=== PATIENT | female | born 1945 | race Caucasian/White ===

== ENCOUNTER → 2023-07-09 10:01 | Outpatient (REF) | payer MEDICARE, SELFPAY ==
[2023-07-09 11:10] LABS: ALT (SGPT) 52 U/L (0-35); AST (SGOT) 43 U/L (14-36); Albumin 4.4 g/dl (3.5-5.0); Alkaline Phosphatase 78 U/L (38-126); Blood Urea Nitrogen 22 mg/dl (7-17); Calcium 9.9 mg/dl (8.4-10.2); Carbon Dioxide 28 mmol/L (22-30); Chloride 104 mmol/L (98-107); Glucose 81 mg/dl (70-99); Potassium 4.6 mmol/L (3.5-5.1); Sodium 140 mmol/L (135-145); Total Bilirubin 0.7 mg/dl (0.2-1.3); Total Protein 7.3 g/dl (6.3-8.2); eGFR 57.31
== END ==
LOC: REG 10:01
PROVIDERS: ATTENDING PHYSICIAN Nurse Practitioner Adult Health
DX: R79.89 Other specified abnormal findings of blood chemistry (principal)
CPT/HCPCS: 36415; 80053

== ENCOUNTER → 2023-08-06 10:22 | Outpatient (REF) | payer MEDICARE, SELFPAY ==
[2023-08-06 11:55] LABS: ALT (SGPT) 117 U/L (0-35); AST (SGOT) 75 U/L (14-36); Albumin 4.2 g/dl (3.5-5.0); Alkaline Phosphatase 98 U/L (38-126); Total Bilirubin 0.6 mg/dl (0.2-1.3); Total Protein 7.1 g/dl (6.3-8.2)
== END ==
LOC: REG 10:22
PROVIDERS: ATTENDING PHYSICIAN Nurse Practitioner Adult Health
DX: R79.89 Other specified abnormal findings of blood chemistry (principal)
CPT/HCPCS: 36415; 80076

== ENCOUNTER → 2023-08-15 07:19 | Outpatient (REF) | payer MEDICARE, SELFPAY | LOC: HWRAD 07:19 | PROVIDERS: ATTENDING PHYSICIAN Surgery Vascular Surgery; FAMILY PHYSICIAN Nurse Practitioner Adult Health | DX: I72.8 Aneurysm of other specified arteries (principal) | CPT/HCPCS: 74174; Q9967 ==

== ENCOUNTER → 2023-08-28 07:11 | Outpatient (REF) | payer MEDICARE, SELFPAY | LOC: HWRAD 07:11 | PROVIDERS: ATTENDING PHYSICIAN Nurse Practitioner Adult Health | DX: R74.8 Abnormal levels of other serum enzymes (principal); R10.13 Epigastric pain; R14.2 Eructation | CPT/HCPCS: 76700 ==

== ENCOUNTER → 2023-09-14 07:10 | Outpatient (REF) | payer MEDICARE, SELFPAY ==
[2023-09-14 09:15] LABS: TSH Reflex To Free T4 0.87 uIU/ml (0.47-4.68)
[2023-09-14 09:19] LABS: Ferritin 83.4 ng/ml (11.1-264.0)
[2023-09-14 09:21] LABS: Hepatitis B Surface Antigen Negative (Negative)
[2023-09-14 09:38] LABS: Hepatitis B Core Ab, Total Negative (Negative); Hepatitis B Surface Antibody Negative; Hepatitis C Antibody Negative (Negative)
[2023-09-14 09:51] LABS: ALT (SGPT) 71 U/L (0-35); AST (SGOT) 49 U/L (14-36); Albumin 4.2 g/dl (3.5-5.0); Alkaline Phosphatase 92 U/L (38-126); Iron 96 ug/dl (37-170); Total Bilirubin 0.4 mg/dl (0.2-1.3)
[2023-09-14 10:00] LABS: Percent Saturation 31 % (20-50); Total Iron Binding Capacity 307 ug/dl (265-497)
[2023-09-14 10:14] LABS: Direct Bilirubin 0.3 mg/dl (0.0-0.4)
[2023-09-14 11:48] LABS: Hepatitis A Antibody, Total Negative (Negative)
[2023-09-15 14:13] LABS: Hepatitis Be Antibody Negative (Negative); Hepatitis Be Antigen Negative (Negative)
[2023-09-15 16:58] LABS: Alpha-1-Antitrypsin 157 mg/dL (90-200); Ceruloplasmin 21 mg/dL (16-45)
[2023-09-15 22:13] LABS: F-Actin Antibody IgG 9 Units (0-19); Mitochondrial M2 Ab, IgG 4.6 Units (0.0-24.9)
[2023-09-15 22:31] LABS: ANA, IgG Reflex to HEp-2 None Detected (None Detected)
[2023-09-15 23:07] LABS: Endomysial IgA Antibody Titer <1:10 (<1:10)
[2023-09-17 01:37] LABS: IgA 211 mg/dl (70-400)
== END ==
LOC: REG 07:10
PROVIDERS: ATTENDING PHYSICIAN Nurse Practitioner; FAMILY PHYSICIAN Nurse Practitioner Adult Health
DX: R74.8 Abnormal levels of other serum enzymes (principal); I48.0 Paroxysmal atrial fibrillation
CPT/HCPCS: 36415; 80076; 82103; 82390; 82728; 82784; 83516; 83540; 83550; 84443; 86015; 86038; 86231; 86381; 86704; 86706; 86707; 86708; 86803; 87340; 87350

== ENCOUNTER 2023-11-15 06:32 | Day surgery (SDC) | payer MEDICARE, SELFPAY ==
[2023-11-15 08:05] VITALS: BP 148/76
[2023-11-15 08:20] VITALS: BMI 25.9
[2023-11-15 08:35] VITALS: BMI 25.9
[2023-11-15 09:58] VITALS: BP 106/64
[2023-11-15 10:00] VITALS: BP 112/59
[2023-11-15 10:15] VITALS: BP 119/65
== END 2023-11-15 10:33 | disposition home or self-care (01) ==
LOC: GI 06:32
PROVIDERS: ATTENDING PHYSICIAN Internal Medicine Gastroenterology
DX: Z12.11 Encounter for screening for malignant neoplasm of colon (principal); K57.30 Diverticulosis of large intestine without perforation or abscess without bleeding; K56.699 Other intestinal obstruction unspecified as to partial versus complete obstruction; K64.8 Other hemorrhoids; K29.70 Gastritis, unspecified, without bleeding; K31.89 Other diseases of stomach and duodenum; R10.13 Epigastric pain; Z86.010 Personal history of colon polyps
CPT/HCPCS: 45378; 43239; 88305; 88342

== ENCOUNTER → 2024-02-04 08:23 | Outpatient (REF) | payer MEDICARE, SELFPAY | LOC: HWRAD 08:23 | PROVIDERS: ATTENDING PHYSICIAN Internal Medicine Gastroenterology; FAMILY PHYSICIAN Nurse Practitioner Adult Health; REFERRING PHYSICIAN Obstetrics & Gynecology Gynecology | DX: Q43.8 Other specified congenital malformations of intestine (principal) | CPT/HCPCS: 74261 ==

== ENCOUNTER → 2024-03-11 08:46 | Outpatient (REF) | payer MEDICARE, SELFPAY ==
[2024-03-11 09:51] LABS: % Basophils 0.9 % (0-2); % Immature Granulocytes 0.7 % (0-0.5); % Lymphocytes 11.8 % (20.5-51.1); % Monocytes 10.2 % (1.7-9.3); % Neutrophils 73.4 % (42.2-75.2); Absolute Basophils 0.1 10^3/uL (0-0.2); Absolute Eosinophils 0.3 10^3/uL (0-0.7); Absolute Immature Granulocytes 0.1 10^3/uL (0-0.05); Absolute Lymphocytes 1.2 10^3/uL (1.2-3.4); Absolute Monocytes 1.1 10^3/uL (0.1-0.6); Absolute Neutrophils 7.6 10^3/uL (1.4-6.5); Hematocrit 45.4 % (37.0-47.0); Hemoglobin 15.2 g/dL (12.0-16.0); Mean Corp Hgb Conc. 33.5 g/dL (33.0-37.0); Mean Corpuscular Hgb 29.5 pg (27.0-31.0); Mean Corpuscular Volume 88.2 fL (81.0-99.0); Mean Platelet Volume 9.6 fL (7.4-10.4); Nucleated Red Blood Cells % 0 %; Platelet Count 411 10^3/uL (130-400); Red Blood Cell Count 5.15 10^6/uL (4.20-5.40); Red Cell Dist. Width 13.9 % (11.5-14.5); White Blood Cell Count 10.3 10^3/uL (4.8-10.8)
[2024-03-11 10:33] LABS: ALT (SGPT) 71 U/L (0-35); AST (SGOT) 56 U/L (14-36); Albumin 4.7 g/dl (3.5-5.0); Alkaline Phosphatase 91 U/L (38-126); Blood Urea Nitrogen 20 mg/dl (7-17); Calcium 10.2 mg/dl (8.4-10.2); Carbon Dioxide 26 mmol/L (22-30); Chloride 102 mmol/L (98-107); Glucose 96 mg/dl (70-99); HDL Cholesterol 58 mg/dl; Iron 109 ug/dl (37-170); LDL Cholesterol, Calculated 70 mg/dl; Potassium 4.9 mmol/L (3.5-5.1); Sodium 143 mmol/L (135-145); Total Bilirubin 0.6 mg/dl (0.2-1.3); Total Cholesterol 157 mg/dl (50-199); Total Protein 7.7 g/dl (6.3-8.2); Triglyceride 148 mg/dl (10-149); Very Low Density Lipoprotein 29 mg/dl (0-30); eGFR 57.31
[2024-03-11 10:44] LABS: Percent Saturation 31 % (20-50); Total Iron Binding Capacity 344 ug/dl (265-497)
[2024-03-11 11:04] LABS: Ferritin 59.1 ng/ml (11.1-264.0)
== END ==
LOC: REG 08:46
PROVIDERS: ATTENDING PHYSICIAN Nurse Practitioner Adult Health; REFERRING PHYSICIAN Internal Medicine Cardiovascular Disease
DX: Z00.00 Encounter for general adult medical examination without abnormal findings (principal); Z23 Encounter for immunization; I10 Essential (primary) hypertension; E78.5 Hyperlipidemia, unspecified; D50.9 Iron deficiency anemia, unspecified
CPT/HCPCS: 36415; 80053; 80061; 82728; 83540; 83550; 85025

== ENCOUNTER → 2024-03-31 10:11 | Outpatient (REF) | payer MEDICARE, SELFPAY | LOC: HWWDC 10:11 | PROVIDERS: ATTENDING PHYSICIAN Obstetrics & Gynecology Gynecology; FAMILY PHYSICIAN Nurse Practitioner Adult Health | DX: Z12.31 Encounter for screening mammogram for malignant neoplasm of breast (principal); M81.0 Age-related osteoporosis without current pathological fracture | CPT/HCPCS: 77063; 77067; 77080 ==

== ENCOUNTER → 2024-05-22 07:38 | Outpatient (REF) | payer MEDICARE, SELFPAY ==
[2024-05-22 09:11] LABS: % Basophils 1.2 % (0-2); % Eosinophils 3.1 % (0-6); % Immature Granulocytes 0.6 % (0-0.5); % Lymphocytes 13.6 % (20.5-51.1); % Monocytes 11.4 % (1.7-9.3); % Neutrophils 70.1 % (42.2-75.2); Absolute Basophils 0.1 10^3/uL (0-0.2); Absolute Eosinophils 0.3 10^3/uL (0-0.7); Absolute Immature Granulocytes 0.1 10^3/uL (0-0.05); Absolute Lymphocytes 1.4 10^3/uL (1.2-3.4); Absolute Monocytes 1.2 10^3/uL (0.1-0.6); Absolute Neutrophils 7.1 10^3/uL (1.4-6.5); Hematocrit 46.2 % (37.0-47.0); Hemoglobin 15.2 g/dL (12.0-16.0); Mean Corp Hgb Conc. 32.9 g/dL (33.0-37.0); Mean Corpuscular Hgb 29.4 pg (27.0-31.0); Mean Corpuscular Volume 89.4 fL (81.0-99.0); Mean Platelet Volume 9.7 fL (7.4-10.4); Nucleated Red Blood Cells % 0 %; Platelet Count 418 10^3/uL (130-400); Red Blood Cell Count 5.17 10^6/uL (4.20-5.40); Red Cell Dist. Width 13.7 % (11.5-14.5); White Blood Cell Count 10.1 10^3/uL (4.8-10.8)
== END ==
LOC: REG 07:38
PROVIDERS: ATTENDING PHYSICIAN Nurse Practitioner Adult Health
DX: R79.89 Other specified abnormal findings of blood chemistry (principal)
CPT/HCPCS: 36415; 85025

== ENCOUNTER → 2024-05-29 08:32 | Outpatient (REF) | payer MEDICARE, SELFPAY | LOC: REG 08:32 | PROVIDERS: ATTENDING PHYSICIAN Nurse Practitioner Adult Health; FAMILY PHYSICIAN Internal Medicine Cardiovascular Disease | DX: M54.2 Cervicalgia (principal); M79.601 Pain in right arm | CPT/HCPCS: 72050; 73030 ==

== ENCOUNTER → 2024-07-02 11:15 | Outpatient (REF) | payer MEDICARE, SELFPAY ==
[2024-07-02 12:09] LABS: % Basophils 1.1 % (0-2); % Eosinophils 2.1 % (0-6); % Immature Granulocytes 0.6 % (0-0.5); % Lymphocytes 12.2 % (20.5-51.1); % Monocytes 10.3 % (1.7-9.3); % Neutrophils 73.7 % (42.2-75.2); Absolute Basophils 0.1 10^3/uL (0-0.2); Absolute Eosinophils 0.2 10^3/uL (0-0.7); Absolute Immature Granulocytes 0.1 10^3/uL (0-0.05); Absolute Lymphocytes 1.4 10^3/uL (1.2-3.4); Absolute Monocytes 1.2 10^3/uL (0.1-0.6); Absolute Neutrophils 8.3 10^3/uL (1.4-6.5); Hematocrit 47.4 % (37.0-47.0); Hemoglobin 15.7 g/dL (12.0-16.0); Mean Corp Hgb Conc. 33.1 g/dL (33.0-37.0); Mean Corpuscular Hgb 29.7 pg (27.0-31.0); Mean Corpuscular Volume 89.6 fL (81.0-99.0); Mean Platelet Volume 9.6 fL (7.4-10.4); Nucleated Red Blood Cells % 0 %; Platelet Count 405 10^3/uL (130-400); Red Blood Cell Count 5.29 10^6/uL (4.20-5.40); White Blood Cell Count 11.3 10^3/uL (4.8-10.8)
== END ==
LOC: REG 11:15
PROVIDERS: ATTENDING PHYSICIAN Internal Medicine Hematology & Oncology; FAMILY PHYSICIAN Nurse Practitioner Adult Health; OTHER PHYSICIAN Internal Medicine Cardiovascular Disease
DX: D47.1 Chronic myeloproliferative disease (principal)
CPT/HCPCS: 36415; 85025

== ENCOUNTER → 2024-07-07 09:48 | Outpatient (REF) | payer MEDICARE, SELFPAY | LOC: RCS 09:48 | PROVIDERS: ATTENDING PHYSICIAN Internal Medicine Cardiovascular Disease; FAMILY PHYSICIAN Nurse Practitioner Adult Health | DX: I48.0 Paroxysmal atrial fibrillation (principal); I49.01 Ventricular fibrillation | CPT/HCPCS: 93306 ==

== ENCOUNTER 2024-07-14 07:57 | Outpatient (RCR) | payer MEDICARE, SELFPAY | END 2024-07-14 23:59 | disposition home or self-care (01) | LOC: RPT 07:57 | PROVIDERS: ATTENDING PHYSICIAN Internal Medicine Gastroenterology; FAMILY PHYSICIAN Nurse Practitioner Adult Health | DX: M62.89 Other specified disorders of muscle (principal); Z73.6 Limitation of activities due to disability; R26.81 Unsteadiness on feet; R26.89 Other abnormalities of gait and mobility; M62.81 Muscle weakness (generalized) | CPT/HCPCS: 97161; 97530 ==

== ENCOUNTER → 2024-07-18 11:06 | Outpatient (REF) | payer MEDICARE, SELFPAY ==
[2024-07-18 11:59] LABS: % Basophils 1.1 % (0-2); % Immature Granulocytes 0.9 % (0-0.5); % Lymphocytes 12.2 % (20.5-51.1); % Monocytes 9.8 % (1.7-9.3); Absolute Basophils 0.1 10^3/uL (0-0.2); Absolute Eosinophils 0.2 10^3/uL (0-0.7); Absolute Immature Granulocytes 0.1 10^3/uL (0-0.05); Absolute Lymphocytes 1.3 10^3/uL (1.2-3.4); Absolute Neutrophils 7.6 10^3/uL (1.4-6.5); Hematocrit 46.6 % (37.0-47.0); Hemoglobin 15.1 g/dL (12.0-16.0); Mean Corp Hgb Conc. 32.4 g/dL (33.0-37.0); Mean Corpuscular Hgb 29.4 pg (27.0-31.0); Mean Corpuscular Volume 90.7 fL (81.0-99.0); Mean Platelet Volume 9.4 fL (7.4-10.4); Nucleated Red Blood Cells % 0 %; Platelet Count 369 10^3/uL (130-400); Red Blood Cell Count 5.14 10^6/uL (4.20-5.40); White Blood Cell Count 10.3 10^3/uL (4.8-10.8)
== END ==
LOC: REG 11:06
PROVIDERS: ATTENDING PHYSICIAN Internal Medicine Hematology & Oncology; FAMILY PHYSICIAN Nurse Practitioner Adult Health
DX: D47.1 Chronic myeloproliferative disease (principal)
CPT/HCPCS: 36415; 85025

== ENCOUNTER → 2024-07-31 13:28 | Outpatient (REF) | payer MEDICARE, SELFPAY | LOC: MRI 13:28 | PROVIDERS: ATTENDING PHYSICIAN Nurse Practitioner Adult Health | DX: M21.372 Foot drop, left foot (principal); R26.89 Other abnormalities of gait and mobility; R29.6 Repeated falls; R42 Dizziness and giddiness; R26.9 Unspecified abnormalities of gait and mobility; R53.83 Other fatigue | CPT/HCPCS: 70544; 70553; A9575 ==

== ENCOUNTER → 2024-08-01 13:06 | Outpatient (REF) | payer MEDICARE, SELFPAY ==
[2024-08-01 14:18] LABS: % Basophils 0.9 % (0-2); % Eosinophils 2.3 % (0-6); % Immature Granulocytes 0.6 % (0-0.5); % Lymphocytes 12.2 % (20.5-51.1); % Monocytes 9.6 % (1.7-9.3); % Neutrophils 74.4 % (42.2-75.2); Absolute Basophils 0.1 10^3/uL (0-0.2); Absolute Eosinophils 0.3 10^3/uL (0-0.7); Absolute Immature Granulocytes 0.1 10^3/uL (0-0.05); Absolute Lymphocytes 1.4 10^3/uL (1.2-3.4); Absolute Monocytes 1.1 10^3/uL (0.1-0.6); Absolute Neutrophils 8.7 10^3/uL (1.4-6.5); Hematocrit 45.3 % (37.0-47.0); Hemoglobin 15.2 g/dL (12.0-16.0); Mean Corp Hgb Conc. 33.6 g/dL (33.0-37.0); Mean Corpuscular Hgb 29.9 pg (27.0-31.0); Mean Corpuscular Volume 89.2 fL (81.0-99.0); Mean Platelet Volume 9.6 fL (7.4-10.4); Nucleated Red Blood Cells % 0 %; Platelet Count 436 10^3/uL (130-400); Red Blood Cell Count 5.08 10^6/uL (4.20-5.40); White Blood Cell Count 11.8 10^3/uL (4.8-10.8)
== END ==
LOC: REG 13:06
PROVIDERS: ATTENDING PHYSICIAN Internal Medicine Hematology & Oncology; FAMILY PHYSICIAN Nurse Practitioner Adult Health
DX: D47.1 Chronic myeloproliferative disease (principal)
CPT/HCPCS: 36415; 85025

== ENCOUNTER → 2024-08-15 10:25 | Outpatient (REF) | payer MEDICARE, SELFPAY ==
[2024-08-15 12:00] LABS: % Basophils 1.1 % (0-2); % Eosinophils 3.4 % (0-6); % Immature Granulocytes 0.5 % (0-0.5); % Lymphocytes 14.2 % (20.5-51.1); % Monocytes 10.3 % (1.7-9.3); % Neutrophils 70.5 % (42.2-75.2); Absolute Basophils 0.1 10^3/uL (0-0.2); Absolute Eosinophils 0.4 10^3/uL (0-0.7); Absolute Immature Granulocytes 0.1 10^3/uL (0-0.05); Absolute Lymphocytes 1.5 10^3/uL (1.2-3.4); Absolute Monocytes 1.1 10^3/uL (0.1-0.6); Absolute Neutrophils 7.6 10^3/uL (1.4-6.5); Hematocrit 44.9 % (37.0-47.0); Hemoglobin 14.9 g/dL (12.0-16.0); Mean Corp Hgb Conc. 33.2 g/dL (33.0-37.0); Mean Corpuscular Hgb 29.5 pg (27.0-31.0); Mean Corpuscular Volume 88.9 fL (81.0-99.0); Mean Platelet Volume 9.9 fL (7.4-10.4); Nucleated Red Blood Cells % 0 %; Platelet Count 411 10^3/uL (130-400); Red Blood Cell Count 5.05 10^6/uL (4.20-5.40); Red Cell Dist. Width 14.2 % (11.5-14.5); White Blood Cell Count 10.7 10^3/uL (4.8-10.8)
== END ==
LOC: REG 10:25
PROVIDERS: ATTENDING PHYSICIAN Internal Medicine Hematology & Oncology; FAMILY PHYSICIAN Nurse Practitioner Adult Health
DX: D47.1 Chronic myeloproliferative disease (principal); I48.0 Paroxysmal atrial fibrillation
CPT/HCPCS: 36415; 85025

== ENCOUNTER 2024-08-25 10:18 | Outpatient (RCR) | payer MEDICARE, SELFPAY | END 2024-08-25 23:59 | disposition home or self-care (01) | LOC: RPT 10:18 | PROVIDERS: ATTENDING PHYSICIAN Internal Medicine Gastroenterology; FAMILY PHYSICIAN Nurse Practitioner Adult Health | DX: M62.89 Other specified disorders of muscle (principal); Z73.6 Limitation of activities due to disability; R26.81 Unsteadiness on feet; R26.89 Other abnormalities of gait and mobility; M62.81 Muscle weakness (generalized); M19.011 Primary osteoarthritis, right shoulder; M79.601 Pain in right arm; M50.30 Other cervical disc degeneration, unspecified cervical region | CPT/HCPCS: 97110; 97112; 97140; 97164 ==

== ENCOUNTER → 2024-09-01 11:09 | Outpatient (REF) | payer MEDICARE, SELFPAY ==
[2024-09-01 12:31] LABS: % Basophils 0.8 % (0-2); % Eosinophils 1.3 % (0-6); % Immature Granulocytes 0.7 % (0-0.5); % Lymphocytes 10.2 % (20.5-51.1); % Monocytes 8.9 % (1.7-9.3); % Neutrophils 78.1 % (42.2-75.2); Absolute Basophils 0.1 10^3/uL (0-0.2); Absolute Eosinophils 0.2 10^3/uL (0-0.7); Absolute Immature Granulocytes 0.1 10^3/uL (0-0.05); Absolute Lymphocytes 1.5 10^3/uL (1.2-3.4); Absolute Monocytes 1.3 10^3/uL (0.1-0.6); Absolute Neutrophils 11.7 10^3/uL (1.4-6.5); Hematocrit 46.2 % (37.0-47.0); Hemoglobin 15.5 g/dL (12.0-16.0); Mean Corp Hgb Conc. 33.5 g/dL (33.0-37.0); Mean Corpuscular Hgb 29.6 pg (27.0-31.0); Mean Corpuscular Volume 88.2 fL (81.0-99.0); Mean Platelet Volume 9.7 fL (7.4-10.4); Nucleated Red Blood Cells % 0 %; Platelet Count 411 10^3/uL (130-400); Red Blood Cell Count 5.24 10^6/uL (4.20-5.40); Red Cell Dist. Width 13.9 % (11.5-14.5)
== END ==
LOC: REG 11:09
PROVIDERS: ATTENDING PHYSICIAN Internal Medicine Hematology & Oncology; FAMILY PHYSICIAN Nurse Practitioner Adult Health
DX: D47.1 Chronic myeloproliferative disease (principal)
CPT/HCPCS: 36415; 85025

== ENCOUNTER → 2024-09-15 11:15 | Outpatient (REF) | payer MEDICARE, SELFPAY ==
[2024-09-15 12:04] LABS: % Basophils 0.9 % (0-2); % Eosinophils 2.5 % (0-6); % Lymphocytes 14.6 % (20.5-51.1); % Monocytes 10.6 % (1.7-9.3); % Neutrophils 70.4 % (42.2-75.2); Absolute Basophils 0.1 10^3/uL (0-0.2); Absolute Eosinophils 0.3 10^3/uL (0-0.7); Absolute Immature Granulocytes 0.1 10^3/uL (0-0.05); Absolute Lymphocytes 1.6 10^3/uL (1.2-3.4); Absolute Monocytes 1.2 10^3/uL (0.1-0.6); Absolute Neutrophils 7.9 10^3/uL (1.4-6.5); Hemoglobin 14.9 g/dL (12.0-16.0); Mean Corp Hgb Conc. 33.1 g/dL (33.0-37.0); Mean Corpuscular Hgb 29.9 pg (27.0-31.0); Mean Corpuscular Volume 90.2 fL (81.0-99.0); Mean Platelet Volume 9.8 fL (7.4-10.4); Nucleated Red Blood Cells % 0 %; Platelet Count 411 10^3/uL (130-400); Red Blood Cell Count 4.99 10^6/uL (4.20-5.40); Red Cell Dist. Width 14.4 % (11.5-14.5); White Blood Cell Count 11.2 10^3/uL (4.8-10.8)
== END ==
LOC: REG 11:15
PROVIDERS: ATTENDING PHYSICIAN Internal Medicine Hematology & Oncology; FAMILY PHYSICIAN Nurse Practitioner Adult Health
DX: D47.1 Chronic myeloproliferative disease (principal)
CPT/HCPCS: 36415; 85025

== ENCOUNTER 2024-09-24 09:52 | Outpatient (RCR) | payer MEDICARE, SELFPAY | END 2024-09-24 23:59 | disposition home or self-care (01) | LOC: RPT 09:52 | PROVIDERS: ATTENDING PHYSICIAN Internal Medicine Gastroenterology; FAMILY PHYSICIAN Nurse Practitioner Adult Health | DX: M19.011 Primary osteoarthritis, right shoulder (principal); M79.601 Pain in right arm; Z73.6 Limitation of activities due to disability; M62.89 Other specified disorders of muscle; R26.81 Unsteadiness on feet; M50.30 Other cervical disc degeneration, unspecified cervical region; R26.89 Other abnormalities of gait and mobility; M62.81 Muscle weakness (generalized) | CPT/HCPCS: 97110; 97112; 97140 ==

== ENCOUNTER → 2024-09-25 14:14 | Outpatient (REF) | payer MEDICARE, SELFPAY ==
[2024-09-25 14:34] LABS: % Basophils 0.8 % (0-2); % Immature Granulocytes 0.9 % (0-0.5); % Lymphocytes 12.2 % (20.5-51.1); % Neutrophils 74.1 % (42.2-75.2); Absolute Basophils 0.1 10^3/uL (0-0.2); Absolute Eosinophils 0.2 10^3/uL (0-0.7); Absolute Immature Granulocytes 0.1 10^3/uL (0-0.05); Absolute Lymphocytes 1.5 10^3/uL (1.2-3.4); Absolute Monocytes 1.2 10^3/uL (0.1-0.6); Absolute Neutrophils 8.8 10^3/uL (1.4-6.5); Hematocrit 44.5 % (37.0-47.0); Hemoglobin 14.8 g/dL (12.0-16.0); Mean Corp Hgb Conc. 33.3 g/dL (33.0-37.0); Mean Corpuscular Hgb 29.8 pg (27.0-31.0); Mean Corpuscular Volume 89.5 fL (81.0-99.0); Mean Platelet Volume 9.4 fL (7.4-10.4); Nucleated Red Blood Cells % 0 %; Platelet Count 399 10^3/uL (130-400); Red Blood Cell Count 4.97 10^6/uL (4.20-5.40); Red Cell Dist. Width 14.3 % (11.5-14.5); White Blood Cell Count 11.9 10^3/uL (4.8-10.8)
== END ==
LOC: WDC 14:14
PROVIDERS: ATTENDING PHYSICIAN Obstetrics & Gynecology Gynecology; FAMILY PHYSICIAN Nurse Practitioner Adult Health; REFERRING PHYSICIAN Internal Medicine Hematology & Oncology
DX: D75.839 Thrombocytosis, unspecified (principal); R92.2 Inconclusive mammogram; R92.30 Dense breasts, unspecified
CPT/HCPCS: 36415; 76641; 85025

== ENCOUNTER → 2024-10-01 10:22 | Outpatient (REF) | payer MEDICARE, SELFPAY ==
[2024-10-01 12:57] LABS: Blood Urea Nitrogen 28 mg/dl (7-17); Calcium 9.9 mg/dl (8.4-10.2); Carbon Dioxide 26 mmol/L (22-30); Chloride 103 mmol/L (98-107); Glucose 104 mg/dl (70-99); Sodium 140 mmol/L (135-145); eGFR 56.95
== END ==
LOC: REG 10:22
PROVIDERS: ATTENDING PHYSICIAN Surgery Vascular Surgery; FAMILY PHYSICIAN Nurse Practitioner Adult Health
DX: I72.8 Aneurysm of other specified arteries (principal)
CPT/HCPCS: 36415; 80048

== ENCOUNTER → 2024-10-06 13:39 | Outpatient (REF) | payer MEDICARE, SELFPAY | LOC: RAD 13:39 | PROVIDERS: ATTENDING PHYSICIAN Surgery Vascular Surgery; FAMILY PHYSICIAN Nurse Practitioner Adult Health | DX: I72.8 Aneurysm of other specified arteries (principal) | CPT/HCPCS: 74174; Q9967 ==

== ENCOUNTER → 2024-10-13 10:56 | Outpatient (REF) | payer MEDICARE, SELFPAY ==
[2024-10-13 12:21] LABS: % Basophils 0.8 % (0-2); % Eosinophils 1.5 % (0-6); % Immature Granulocytes 0.8 % (0-0.5); % Lymphocytes 12.5 % (20.5-51.1); % Monocytes 10.9 % (1.7-9.3); % Neutrophils 73.5 % (42.2-75.2); Absolute Basophils 0.1 10^3/uL (0-0.2); Absolute Eosinophils 0.2 10^3/uL (0-0.7); Absolute Immature Granulocytes 0.1 10^3/uL (0-0.05); Absolute Lymphocytes 1.6 10^3/uL (1.2-3.4); Absolute Monocytes 1.4 10^3/uL (0.1-0.6); Absolute Neutrophils 9.3 10^3/uL (1.4-6.5); Hematocrit 47.1 % (37.0-47.0); Hemoglobin 15.6 g/dL (12.0-16.0); Mean Corp Hgb Conc. 33.1 g/dL (33.0-37.0); Mean Corpuscular Hgb 29.6 pg (27.0-31.0); Mean Corpuscular Volume 89.4 fL (81.0-99.0); Nucleated Red Blood Cells % 0 %; Platelet Count 442 10^3/uL (130-400); Red Blood Cell Count 5.27 10^6/uL (4.20-5.40); Red Cell Dist. Width 14.3 % (11.5-14.5); White Blood Cell Count 12.6 10^3/uL (4.8-10.8)
== END ==
LOC: REG 10:56
PROVIDERS: ATTENDING PHYSICIAN Internal Medicine Hematology & Oncology; FAMILY PHYSICIAN Nurse Practitioner Adult Health
DX: D47.1 Chronic myeloproliferative disease (principal)
CPT/HCPCS: 36415; 85025

== ENCOUNTER 2024-10-16 10:11 | Day surgery (SDC) | payer MEDICARE, SELFPAY ==
[2024-10-16] VITALS (18 sets, daily range): BP systolic 105–130; BP diastolic 49–96; BMI 27.2
--- NOTE | 2024-10-16 08:09 | ITS.CL.ABL ---
[employer] - Ablation
Ablation
Procedure Report:
ELECTROPHYSIOLOGIC STUDY AND POSSIBLE ABLATION
DATE: 10/16/24
Primary Care Provider: DARRIN Barger
Primary Chip Person: Iraida Stern M.D.
INDICATION:
Symptomatic Atrial Fibrillation and atrial tachycardia.
Persistent
She has recurred with symptomatic atrial tachyarrhythmia resulting in sensation of increased fatigue. This occurred shortly after reducing amiodarone dose.
She has had a complex arrhythmia history which has included:
� - SVT: having undergone successful AV charisse slow pathway ablation December 2015
� - AF: catheter-based PVI in 2018 and 2019, subsequent epicardial ablation with Convergent ablation November 2020/endocardial mapping and ablation December 2020.
� - At the time of convergent procedure she underwent left atrial appendage exclusion.
� - VF: During a complex hospital stay July to August 2022.
� - She underwent successful cardioversion of atrial fibrillation12/05/2022.
� - She then recurred with atrial fibrillation on device interrogation (01/03/23). She was started on amiodarone and underwent cardioversion.
She noted significantly worsening fatigue on amiodarone. Amiodarone dose was reduced to 100 mg daily.
She is now recurred with atrial tachycardia at approximate 120 to 130 bpm which she typically tracks at times.� She is symptomatic with her tachycardia, marked fatigue.
HAS-BLED: 2
Age
Abnormal Liver Function
CHADSVASc: 5
HTN
Age
Vascular Dz: prior UT
F Gender
*Left atrial appendage exclusion via AtriClip in 2020*
PRESENTING RHYTHM: SR
HISTORY: See H and P.
Symptomatic AF, poorly controlled with attempted medical therapy.
ANTIARRHYTHMIC DRUG: amiodarone
ANTICOAGULATION: recently started on Eliquis with finding of recurrence of atrial arrhythmias and plan for ablation. Normally she is not anticoagulated given that she does have effective placement of left atrial appendage exclusion with AtriClip.
'TIME-OUT': called and confirmed.
SEDATION/ANESTHESIA: provided via the anesthesia department using general anesthesia.
PROCEDURE:
The Medtronic dual-chamber ICD was interrogated and found to have stable function. Device detection was programmed off.
Ultrasound Guidance with real-time visualization of needle insertion and vessel patency performed by me for femoral venous Vascular Access.
Under real-time US guidance, the needle was advanced with negative pressure into the vein. The needle was seen entering the vessel lumen with a good return of dark red flow, the syringe was removed, non-pulsatile, dark red blood low was noted and
the wire was passed without difficulty, then the needle was removed. US confirmed the wire was in the vein, not going into an artery,
Images were taken and saved for the patient's permanent record. Imaging findings typical femoral venous anatomy. Direct visualization of needle puncture into the femoral vein was observed and recorded.
A decapolar CS catheter was placed within the CS for mapping and pacing.
The intracardiac ultrasound catheter was positioned in the RA for continuous intracardiac ultrasound imaging.
Heparin bolus and infusion to target ACT at 300 -350 seconds was administered. Transseptal puncture was performed. This entailed advancing a sheath with dilator into the superior vena cava and withdrawing both (monitoring intracardiac ultrasound,
fluoroscopy and tip pressure) with the tip oriented toward the atrial septum. The fossa ovalis was engaged (indicated by sudden displacement of the sheath tip as well as tenting of the fossa seen on intracardiac ultrasound).
Programmed electrical stimulation with burst atrial pacing was able to induce an atrial tachycardia at cycle length 370 ms. Entrainment pacing from the right atrial catheter demonstrated the right atrium is outside the tachycardia circuit.
Transseptal puncture was performed. Left atrial catheter position was confirmed by echocardiographic imaging, pressure monitoring (LA mean pressure 7 mm Hg) and fluoroscopy. The sheath was advanced over the dilator and positioned in the left
atrium.
The [employer] multipolar mapping/ablation Sphere-9 catheter was positioned through the transseptal sheath for high density mapping.
Geometry and voltage mapping was performed using the [employer] mapping system for three-dimensional electroanatomical mapping.
Catheter positioning was guided and confirmed using both I.C.E. and fluoroscopy.
Mapping demonstrated a paucity of mappable electrograms overall. There is reconnection of the pulmonary veins at the drea between the right superior and right inferior pulmonary vein.
Pulmonary venous isolation with Affera PFA delivery to the drea between the right inferior right superior pulmonary vein reisolated the right sided pulmonary veins.
After pulmonary venous isolation, additional energy applications/additional ablation sets required at targeted extra PV contributors to atrial fibrillation.
Targets were identified with electroanatomical voltage mapping finding areas of low voltage and complex fractionated electrograms. These areas can be sites for the formation of rotors which can drive and maintain atrial fibrillation. These areas are
known to be significant contributors to initiation and perpetuation of atrial fibrillation.
Targets for additional PFA ablation in this case included:
Re-isolation of LA posterior wall which required several lesions at the targeted site on the posterior wall of the left atrium towards the dome and somewhat leftward.
Ablation eliminated the areas of complex electrograms and low voltage.
After ablation of the posterior wall, additional targets remained at the ligament of Octavio between the left-sided pulmonary veins and the left atrial appendage.
Pulsed electric field energy applications were delivered to the ligament of Octavio along its course abutting the left-sided pulmonary veins
Ablation eliminated the areas of complex electrograms and low voltages
He remained in a left atrial tachyarrhythmia which was remapped and during mapping the tachycardia cycle length would waffle between 360 ms, 400 ms and 520 ms. Activation mapping was attempted of each cycle length but during mapping tachycardia
would continue to change. It was decided to ablate potential tachyarrhythmic circuits such as the mitral valve annulus even though I could not prove this was a mitral annular circuit. After energy delivery from the left atrial appendage down to
the mitral annulus, tachycardia continued. Additional mapping was performed. There appeared to be an area of earliest activation, focal at the mitral valve annulus at approximately 3:00 in the 30 degree SENIA projection.
A single energy delivery to this area terminated the tachycardia. Additional pulsed electric field energy deliveries were applied in and around this area. To reduce the risk of ablation induced macro reentrant arrhythmia this ablation was carried
to the mitral valve annulus and back to the previously ablated right superior pulmonary vein antrum to create a line of block.
At the completion of ablation there is electrical isolation of all 4 pulmonary veins (LSPV, LIPV, RSPV, RIPV), there is electrical isolation of the posterior wall of the left atrium, there is a line of block at the mitral valve annulus from the left
atrial appendage down to the mitral valve.
Programmed electrostimulation including burst atrial pacing as well as delivery of atrial decremental extrastimuli down to atrial ERP failed to induce any sustained arrhythmias.
I.C.E. :
Pre-Ablation Post-Ablation
LVEF: 50 % 50 %
WMA: none none
Pericardial effusion: none none
There is no change in the fluoroscopic appearance of the leads at the end of the study with removal of all temporary catheters.
COMPLICATIONS:
None
SUMMARY:
- Mapping and ablation to re-isolate the PVs
- Additional AF ablation set after PVI
Re-isolation of LA posterior wall
Ligament of Octavio between the left-sided pulmonary veins and the left atrial appendage.
- Mapping and ablation of second tachycardia
Focal left atrial tachycardia
- Interrogation and reprogramming of dual-chamber ICD
- 3-D Electroanatomical Mapping
- Intracardiac Ultrasound
- Ultrasound guidance for vascular access
Post ablation, I discussed today's findings and results with the patient's , Stephen.
RECOMMENDATIONS:
- Observe in monitored bed.
- Maintain oral anticoagulation.
- Discontinue amiodarone
If there is recurrence of arrhythmia, would consider dofetilide for rhythm control.
- Discontinue furosemide
She has been recording rather low blood pressures at home as well as some dizziness particular when standing and left atrial pressure today is only 7.
Can reassess the need for furosemide as an outpatient.
- Office visit with me in 3 to 4 months
- Continue cardiovascular care with Dr. Iraida Stern (previously scheduled office visit is scheduled for November 27, 2024)
Copy to:
DARRIN Barger
Iraida Stern M.D.
[2024-10-16 11:25] LABS: Magnesium 2.1 mg/dl (1.6-2.3)
[2024-10-16] MEDS: TYLENOL 1000 MG PO (12:51)
[2024-10-16 14:12] LABS: ACT-LR - POC 224 Seconds (116-155)
[2024-10-16 15:40] LABS: ACT-LR - POC > 397 Seconds (116-155)
[2024-10-16 15:40] LABS: ACT-LR - POC > 397 Seconds (116-155)
--- NOTE | 2024-10-16 17:57 | PTCARENOTE ---
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 monitor shows Apaced, VSS. patient is AAOx3, at bedside. oriented to room and surroundings.
[2024-10-16] MEDS: NORVASC 5 MG PO (18:28)
[2024-10-16] MEDS: CRESTOR 5 MG PO (18:28)
[2024-10-16] MEDS: ELIQUIS 5 MG PO (20:53)
[2024-10-16] MEDS: PROTONIX 40 MG PO (20:53)
[2024-10-16] MEDS: TOPROL XL 25 MG PO (20:53)
--- NOTE | 2024-10-16 21:20 | PTCARENOTE ---
received the patient at the change of shift. R groin figure of 8 sutures removed without any complications. dressing CDI. + pulses. ambulated to bathroom with the rolling walker. steady on her feet. denies any lightheadedness/dizziness. per patients
- patients abdomen looks more distended. patient denies any discomfort. bladder scan- 0. urinated bry urine in the hat. SR/SA with a first degree AVB 60s. bp 120/61. no complaints at this time. educated patient to inform RN with any
changes. answered all questions with patient and . call mauro within reach.
[2024-10-17 02:37] VITALS: BP 114/75
[2024-10-17 03:08] LABS: Hemoglobin 13.5 g/dL (12.0-16.0); Mean Corp Hgb Conc. 33.8 g/dL (33.0-37.0); Mean Corpuscular Hgb 30.2 pg (27.0-31.0); Mean Corpuscular Volume 89.5 fL (81.0-99.0); Mean Platelet Volume 10.2 fL (7.4-10.4); Platelet Count 347 10^3/uL (130-400); Red Blood Cell Count 4.47 10^6/uL (4.20-5.40); Red Cell Dist. Width 14.3 % (11.5-14.5)
[2024-10-17 03:09] VITALS: BMI 27.6
[2024-10-17 03:32] LABS: Blood Urea Nitrogen 29 mg/dl (7-17); Calcium 9.5 mg/dl (8.4-10.2); Carbon Dioxide 24 mmol/L (22-30); Chloride 110 mmol/L (98-107); Estimated Creatinine Clearance 49 ml/min; Glucose 113 mg/dl (70-99); Magnesium 2.1 mg/dl (1.6-2.3); Potassium 5.3 mmol/L (3.5-5.1); Sodium 141 mmol/L (135-145); eGFR > 60.00
--- NOTE | 2024-10-17 07:51 | W.PN.CARDCBS ---
Addendum entered and electronically signed by Stephen Stern MD 10/17/24 11:56:
Patient seen, interviewed and examined by me.
Well-appearing, no acute distress
Regular rate and rhythm with normal S1 and S2, no S3 no S4. There is a grade 1/6 apical holosystolic murmur and no rubs. PMI is normally placed.
Lungs are clear to auscultation bilaterally without wheezes rales or rhonchi.
Abdomen soft nontender nondistended with normoactive bowel sounds
Extremities show trace pretibial edema bilaterally no clubbing or cyanosis.
Neurologic exam is grossly nonfocal.
Telemetry continues to show sinus rhythm and/or atrial pacing. There have been no sustained atrial arrhythmias post ablation.
She remained hemodynamically stable.
ECG does show some anterolateral T wave abnormalities.
It is possible that this could be related to the delivery of pulsed electric field energy at the area of the mitral valve annulus resulting in coronary spasm. Importantly this was observed during her ablation and echocardiogram at that time as well
as intracardiac echocardiogram at the end of the study showed no wall motion abnormality. She remains pain-free. She has been up and ambulating with the use of a walker and has no exertional symptoms. We will continue observational follow-up.
We had a long discussion regarding her recurrent arrhythmias. I am stopping amiodarone with no plans to resume. If she does have recurrent arrhythmias we could consider dofetilide. I did discuss with her that she certainly has an increased risk
of recurrent arrhythmias given the significant left atrial scarring that we observed. Overall stable for discharge to home. I did review discharge instructions with her as well.
Original Note:
Today's Communication / Plan
-
stable for d/c home today
Impression / Plan
-
Primary Care Provider: DARRIN Barger
Primary Asset Administrator: Iraida Stern M.D.
Impression:
-Symptomatic Persistent Atrial Fibrillation and atrial tachycardia.
-SVT: having undergone successful AV charisse slow pathway ablation December 2015
-AF: catheter-based PVI in 2018 and 2019, subsequent epicardial ablation with Convergent ablation, with RUFINO clip 11/2020 then endocardial mapping and ablation December 2020.
�-VF Arrest: During a complex hospital stay July to August 2022.
-post ICD implant
� - She underwent successful cardioversion of atrial fibrillation 12/05/2022.
� - She then recurred with atrial fibrillation on device interrogation (01/03/23). She was started on amiodarone and underwent cardioversion.
-DVT/PE 2019
-Hyperlipidemia
-Ambulatory dysfunction
Plan:
post redo PVI, PW 10/16/24
feels good
groin stable
tele SR, 1deg AVB, mild STD lateral possibly d/t coronary spasm from ablation
denies chest pain, no new WMA during procedure
OAC Eliquis
Will stop Amiodarone, if recurrence would consider dofetilide
continue metoprolol xl 25 bid
LA pressure only 7, with some dizziness at home, will stop furosemide
Activity restrictions reviewed
f/u Dr. Khoury in 3 mo
home today
10/16/24 Procedure:
- Mapping and ablation to re-isolate the PVs
- Additional AF ablation set after PVI
Re-isolation of LA posterior wall
Ligament of Octavio between the left-sided pulmonary veins and the left atrial appendage.
- Mapping and ablation of second tachycardia
Focal left atrial tachycardia
- Interrogation and reprogramming of dual-chamber ICD
- 3-D Electroanatomical Mapping
- Intracardiac Ultrasound
- Ultrasound guidance for vascular access
Progress Note - Asset Administrator
Subjective
Date of Service: October 17, 2024
denies cp, sob
Objective
Labs:
10/17/24 02:43
10/17/24 02:43
Labs
Hgb 13.5 g/dL (12.0-16.0) 10/17/24 02:43
Hct 40.0 % (37.0-47.0) 10/17/24 02:43
Plt Count 347 10^3/uL (130-400) D 10/17/24 02:43
Sodium 141 mmol/L (135-145) 10/17/24 02:43
Potassium 5.3 mmol/L (3.5-5.1) H 10/17/24 02:43
BUN 29 mg/dl (7-17) H 10/17/24 02:43
Creatinine 0.9 mg/dL (0.6-1.0) 10/17/24 02:43
Glucose 113 mg/dl (70-99) H 10/17/24 02:43
Vital Signs and I&O:
Vital Signs
Temp Pulse Resp BP Pulse Ox
97.5 F 62 20 114/75 97
10/17/24 02:40 10/17/24 03:00 10/17/24 02:40 10/17/24 02:37 10/17/24 02:40
Vital Signs
Temp Pulse Resp BP Pulse Ox
97.5 F 62 20 114/75 97
10/17/24 02:40 10/17/24 03:00 10/17/24 02:40 10/17/24 02:37 10/17/24 02:40
Intake & Output
10/15/24 10/16/24 10/17/24 10/18/24
06:59 06:59 06:59 06:59
Intake Total 250 / 250
Output Total 550 / 550
Balance -300 / -300
Physical Exam
Physical Exam
NAD< AOX3
S1, S2, RRR
CTAB, non labored no wheeze
SNTND bsx4
R fem site c/d/i no HT, soft
[2024-10-17 08:07] VITALS: BP 117/61
[2024-10-17] MEDS: PROZAC 20 MG PO (08:17)
[2024-10-17] MEDS: ASPIR LOW (ENTERIC COATED) 81 MG PO (08:17)
[2024-10-17] MEDS: PROTONIX 40 MG PO (08:17)
[2024-10-17] MEDS: TOPROL XL 25 MG PO (08:18)
[2024-10-17] MEDS: ELIQUIS 5 MG PO (08:18)
--- NOTE | 2024-10-17 10:00 | W.DS.TRANS ---
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
-
Discharge Instructions:
Sleep Apnea Risk Low
Discharge Diagnosis/Procedures Atrial fibrillation post ablation
Diet Low Cholesterol
Driving Restrictions No driving for 24 hours
Instructions:
Stand-Alone Forms: DC Instructions- Cath/EP Lab
Changes to Home Medications: Yes
Discharge Medications:
DC Medications w/original date entered in [facility]
methylcellulose (laxative) 500 mg tablet (Citrucel) 1,000 mg PO BID Constipation 08/21/22
aspirin 81 mg tablet,delayed release 81 mg PO DAILY #30 tabs 09/06/22
metoprolol succinate 25 mg tablet,extended release 24 hr 25 mg PO BID 30 days #60 tabs 09/06/22
fluoxetine 20 mg capsule 20 mg PO DAILY 12/05/22
multivitamin 1 tab PO DAILY 12/05/22
rosuvastatin 5 mg tablet 5 mg PO DAILY 12/05/22
Vitamin D 1,000 mg PO DAILY 11/15/23
omeprazole magnesium 20 mg tablet,delayed release (Prilosec OTC) 20 mg PO BID 11/15/23
amlodipine 5 mg tablet 5 mg PO DAILY 10/16/24
apixaban 5 mg tablet (Eliquis) 5 mg PO BID 10/16/24
Home Medication Changes
stop amiodarone and lasix
Pending Results: No
== END 2024-10-17 10:36 | disposition home or self-care (01) ==
LOC: CATH 10:11
PROVIDERS: Nurse Practitioner Adult Health; ATTENDING PHYSICIAN Internal Medicine Cardiovascular Disease; FAMILY PHYSICIAN Nurse Practitioner Adult Health; OTHER PHYSICIAN Internal Medicine Cardiovascular Disease
DX: I48.19 Other persistent atrial fibrillation (principal); I47.19 Other supraventricular tachycardia; E78.5 Hyperlipidemia, unspecified; I10 Essential (primary) hypertension; I45.10 Unspecified right bundle-branch block; I25.2 Old myocardial infarction; Z79.01 Long term (current) use of anticoagulants; Z86.711 Personal history of pulmonary embolism; Z88.2 Allergy status to sulfonamides; Z88.8 Allergy status to other drugs, medicaments and biological substances
CPT/HCPCS: C1894; C1733; C1769; C1766; C1730; C1892; 80048; 83735; 85027; 85347; 86850; 86900; 86901; 93005; 93655; 93656; 93657

== ENCOUNTER 2024-10-24 09:50 | Outpatient (RCR) | payer MEDICARE, SELFPAY | END 2024-10-24 23:59 | disposition home or self-care (01) | LOC: RPT 09:50 | PROVIDERS: ATTENDING PHYSICIAN Internal Medicine Gastroenterology; FAMILY PHYSICIAN Nurse Practitioner Adult Health | DX: M19.011 Primary osteoarthritis, right shoulder (principal); Z73.6 Limitation of activities due to disability; M62.89 Other specified disorders of muscle; M79.601 Pain in right arm; R26.81 Unsteadiness on feet; R26.89 Other abnormalities of gait and mobility; M50.30 Other cervical disc degeneration, unspecified cervical region; M62.81 Muscle weakness (generalized); R29.6 Repeated falls | CPT/HCPCS: 97110; 97112; 97164 ==

== ENCOUNTER → 2024-10-28 10:53 | Outpatient (REF) | payer MEDICARE, SELFPAY ==
[2024-10-28 11:33] LABS: % Basophils 1.1 % (0-2); % Eosinophils 2.4 % (0-6); % Immature Granulocytes 0.9 % (0-0.5); % Monocytes 9.9 % (1.7-9.3); % Neutrophils 72.7 % (42.2-75.2); Absolute Basophils 0.1 10^3/uL (0-0.2); Absolute Eosinophils 0.3 10^3/uL (0-0.7); Absolute Immature Granulocytes 0.1 10^3/uL (0-0.05); Absolute Lymphocytes 1.5 10^3/uL (1.2-3.4); Absolute Monocytes 1.1 10^3/uL (0.1-0.6); Absolute Neutrophils 8.2 10^3/uL (1.4-6.5); Hematocrit 44.7 % (37.0-47.0); Hemoglobin 14.7 g/dL (12.0-16.0); Mean Corp Hgb Conc. 32.9 g/dL (33.0-37.0); Mean Corpuscular Hgb 29.9 pg (27.0-31.0); Mean Platelet Volume 9.8 fL (7.4-10.4); Nucleated Red Blood Cells % 0 %; Platelet Count 396 10^3/uL (130-400); Red Blood Cell Count 4.91 10^6/uL (4.20-5.40); Red Cell Dist. Width 14.4 % (11.5-14.5); White Blood Cell Count 11.3 10^3/uL (4.8-10.8)
== END ==
LOC: REG 10:53
PROVIDERS: ATTENDING PHYSICIAN Internal Medicine Hematology & Oncology
DX: D47.1 Chronic myeloproliferative disease (principal)
CPT/HCPCS: 36415; 85025

== ENCOUNTER → 2024-11-10 13:35 | Outpatient (REF) | payer MEDICARE, SELFPAY ==
[2024-11-10 14:34] LABS: % Basophils 0.9 % (0-2); % Eosinophils 2.1 % (0-6); % Immature Granulocytes 0.6 % (0-0.5); % Lymphocytes 11.9 % (20.5-51.1); % Monocytes 9.6 % (1.7-9.3); % Neutrophils 74.9 % (42.2-75.2); Absolute Basophils 0.1 10^3/uL (0-0.2); Absolute Eosinophils 0.3 10^3/uL (0-0.7); Absolute Immature Granulocytes 0.1 10^3/uL (0-0.05); Absolute Lymphocytes 1.5 10^3/uL (1.2-3.4); Absolute Monocytes 1.2 10^3/uL (0.1-0.6); Absolute Neutrophils 9.5 10^3/uL (1.4-6.5); Hematocrit 43.9 % (37.0-47.0); Hemoglobin 14.7 g/dL (12.0-16.0); Mean Corp Hgb Conc. 33.5 g/dL (33.0-37.0); Mean Corpuscular Hgb 29.9 pg (27.0-31.0); Mean Corpuscular Volume 89.4 fL (81.0-99.0); Mean Platelet Volume 9.8 fL (7.4-10.4); Nucleated Red Blood Cells % 0 %; Platelet Count 366 10^3/uL (130-400); Red Blood Cell Count 4.91 10^6/uL (4.20-5.40); Red Cell Dist. Width 13.8 % (11.5-14.5); White Blood Cell Count 12.7 10^3/uL (4.8-10.8)
== END ==
LOC: REG 13:35
PROVIDERS: ATTENDING PHYSICIAN Internal Medicine Hematology & Oncology; FAMILY PHYSICIAN Nurse Practitioner Adult Health
DX: D47.1 Chronic myeloproliferative disease (principal)
CPT/HCPCS: 36415; 85025

== ENCOUNTER 2024-11-24 09:20 | Outpatient (RCR) | payer MEDICARE, SELFPAY | END 2024-11-24 23:59 | disposition home or self-care (01) | LOC: RPT 09:20 | PROVIDERS: ATTENDING PHYSICIAN Internal Medicine Gastroenterology; FAMILY PHYSICIAN Nurse Practitioner Adult Health | DX: M62.89 Other specified disorders of muscle (principal); R26.81 Unsteadiness on feet; Z73.6 Limitation of activities due to disability; M19.011 Primary osteoarthritis, right shoulder; M79.601 Pain in right arm; M50.30 Other cervical disc degeneration, unspecified cervical region; R26.89 Other abnormalities of gait and mobility; R29.6 Repeated falls; M62.81 Muscle weakness (generalized) | CPT/HCPCS: 97110; 97112 ==

== ENCOUNTER → 2024-11-27 10:35 | Outpatient (REF) | payer MEDICARE, SELFPAY ==
[2024-11-27 11:07] LABS: Hematocrit 45.0 % (37.0-47.0); Hemoglobin 15.2 g/dL (12.0-16.0); Mean Corp Hgb Conc. 33.8 g/dL (33.0-37.0); Mean Corpuscular Volume 88.2 fL (81.0-99.0); Nucleated Red Blood Cells % 0 %; Platelet Count 396 10^3/uL (130-400); Red Cell Dist. Width 13.8 % (11.5-14.5)
== END ==
LOC: REG 10:35
PROVIDERS: ATTENDING PHYSICIAN Internal Medicine Hematology & Oncology; FAMILY PHYSICIAN Nurse Practitioner Adult Health
DX: D47.1 Chronic myeloproliferative disease (principal)
CPT/HCPCS: 36415; 85025

== ENCOUNTER → 2024-12-17 07:58 | Outpatient (REF) | payer MEDICARE, SELFPAY ==
[2024-12-17 08:26] LABS: Hematocrit 44.9 % (37.0-47.0); Hemoglobin 14.9 g/dL (12.0-16.0); Mean Corp Hgb Conc. 33.2 g/dL (33.0-37.0); Mean Corpuscular Volume 88.6 fL (81.0-99.0); Nucleated Red Blood Cells % 0 %; Platelet Count 386 10^3/uL (130-400); Red Cell Dist. Width 13.6 % (11.5-14.5)
[2024-12-17 08:41] LABS: INR 1.27; PT 16.4 Sec (11.4-14.6)
[2024-12-17 08:44] VITALS: BP 136/77; BP_SYST 68
[2024-12-17] MEDS: ATIVAN 0.5 MG PO (09:26)
[2024-12-17 10:08] LABS: ALT (SGPT) 28 U/L (0-35); AST (SGOT) 34 U/L (14-36); Albumin 4.6 g/dl (3.5-5.0); Alkaline Phosphatase 108 U/L (38-126); Blood Urea Nitrogen 23 mg/dl (7-17); Calcium 9.8 mg/dl (8.4-10.2); Carbon Dioxide 21 mmol/L (22-30); Chloride 108 mmol/L (98-107); Glucose 124 mg/dl (70-99); Potassium 4.8 mmol/L (3.5-5.1); Sodium 140 mmol/L (135-145); Total Protein 7.7 g/dl (6.3-8.2); eGFR > 60.00
[2024-12-17 10:55] VITALS: BP 157/80; BP_SYST 63
== END ==
LOC: RADI 07:58
PROVIDERS: ATTENDING PHYSICIAN Internal Medicine Hematology & Oncology; FAMILY PHYSICIAN Nurse Practitioner Adult Health; REFERRING PHYSICIAN Internal Medicine Gastroenterology
DX: D47.1 Chronic myeloproliferative disease (principal); D68.8 Other specified coagulation defects; I10 Essential (primary) hypertension
CPT/HCPCS: 36415; 38222; 77012; 80053; 85025; 85610; 88305; 88311; 88312; 88313

== ENCOUNTER 2024-12-22 09:49 | Outpatient (RCR) | payer MEDICARE, SELFPAY | END 2024-12-22 23:59 | disposition home or self-care (01) | LOC: RPT 09:49 | PROVIDERS: ATTENDING PHYSICIAN Internal Medicine Gastroenterology; FAMILY PHYSICIAN Nurse Practitioner Adult Health | DX: M62.89 Other specified disorders of muscle (principal); R26.81 Unsteadiness on feet; M19.011 Primary osteoarthritis, right shoulder; M50.30 Other cervical disc degeneration, unspecified cervical region; Z73.6 Limitation of activities due to disability; M79.601 Pain in right arm; R26.89 Other abnormalities of gait and mobility; R29.6 Repeated falls; M62.81 Muscle weakness (generalized) | CPT/HCPCS: 97110; 97112 ==

== ENCOUNTER → 2024-12-29 10:58 | Outpatient (REF) | payer MEDICARE, SELFPAY | LOC: RAD 10:58 | PROVIDERS: ATTENDING PHYSICIAN Nurse Practitioner Adult Health | DX: M54.16 Radiculopathy, lumbar region (principal); M54.41 Lumbago with sciatica, right side; M25.551 Pain in right hip | CPT/HCPCS: 36415; 72110; 73502 ==

== ENCOUNTER → 2025-01-08 13:37 | Outpatient (REF) | payer MEDICARE, SELFPAY | LOC: MRI 13:37 | PROVIDERS: ATTENDING PHYSICIAN Nurse Practitioner Adult Health | DX: M51.369 Other intervertebral disc degeneration, lumbar region without mention of lumbar back pain or lower extremity pain (principal); M54.50 Low back pain, unspecified | CPT/HCPCS: 72148; 76014; 76015 ==

== ENCOUNTER 2025-01-23 09:50 | Outpatient (RCR) | payer MEDICARE, SELFPAY | END 2025-01-23 23:59 | disposition home or self-care (01) | LOC: RPT 09:50 | PROVIDERS: ATTENDING PHYSICIAN Internal Medicine Gastroenterology; FAMILY PHYSICIAN Nurse Practitioner Adult Health | DX: M62.89 Other specified disorders of muscle (principal); R26.81 Unsteadiness on feet; M19.011 Primary osteoarthritis, right shoulder; M50.30 Other cervical disc degeneration, unspecified cervical region; Z73.6 Limitation of activities due to disability; M79.601 Pain in right arm; R26.89 Other abnormalities of gait and mobility; R29.6 Repeated falls; M62.81 Muscle weakness (generalized) | CPT/HCPCS: 97110; 97112; 97140; 97164 ==

== ENCOUNTER → 2025-03-11 07:12 | Outpatient (REF) | payer MEDICARE, SELFPAY ==
[2025-03-11 09:05] LABS: Hematocrit 44.5 % (37.0-47.0); Hemoglobin 14.8 g/dL (12.0-16.0); Mean Corp Hgb Conc. 33.3 g/dL (33.0-37.0); Mean Corpuscular Volume 89.5 fL (81.0-99.0); Nucleated Red Blood Cells % 0 %; Platelet Count 386 10^3/uL (130-400); Red Cell Dist. Width 14.0 % (11.5-14.5)
[2025-03-11 09:32] LABS: ALT (SGPT) 25 U/L (0-35); AST (SGOT) 31 U/L (14-36); Albumin 4.4 g/dl (3.5-5.0); Alkaline Phosphatase 84 U/L (38-126); Blood Urea Nitrogen 19 mg/dl (7-17); Calcium 9.7 mg/dl (8.4-10.2); Carbon Dioxide 28 mmol/L (22-30); Chloride 105 mmol/L (98-107); Glucose 93 mg/dl (70-99); HDL Cholesterol 48 mg/dl; LDL Cholesterol, Calculated 59 mg/dl; Potassium 5.0 mmol/L (3.5-5.1); Sodium 141 mmol/L (135-145); Total Protein 7.6 g/dl (6.3-8.2); Very Low Density Lipoprotein 28 mg/dl (0-30); eGFR > 60.00
== END ==
LOC: REG 07:12
PROVIDERS: ATTENDING PHYSICIAN Nurse Practitioner Adult Health; OTHER PHYSICIAN Internal Medicine Hematology & Oncology
DX: E78.2 Mixed hyperlipidemia (principal); D47.1 Chronic myeloproliferative disease
CPT/HCPCS: 36415; 80053; 80061; 85025

== ENCOUNTER → 2025-03-28 12:39 | Outpatient (REF) | payer MEDICARE, SELFPAY | LOC: WDC 12:39 | PROVIDERS: ATTENDING PHYSICIAN Obstetrics & Gynecology Gynecology; FAMILY PHYSICIAN Nurse Practitioner Adult Health | DX: Z12.31 Encounter for screening mammogram for malignant neoplasm of breast (principal) | CPT/HCPCS: 77063; 77067 ==

== ENCOUNTER 2025-03-30 11:22 | Outpatient (RCR) | payer MEDICARE, SELFPAY | END 2025-03-30 23:59 | disposition home or self-care (01) | LOC: RPT 11:22 | PROVIDERS: ATTENDING PHYSICIAN Internal Medicine Gastroenterology; FAMILY PHYSICIAN Nurse Practitioner Adult Health | DX: M62.89 Other specified disorders of muscle (principal); R26.81 Unsteadiness on feet; M19.011 Primary osteoarthritis, right shoulder; M50.30 Other cervical disc degeneration, unspecified cervical region; Z73.6 Limitation of activities due to disability; M79.601 Pain in right arm; R26.89 Other abnormalities of gait and mobility; M62.81 Muscle weakness (generalized); M48.00 Spinal stenosis, site unspecified; M47.819 Spondylosis without myelopathy or radiculopathy, site unspecified; R29.6 Repeated falls | CPT/HCPCS: 97110; 97112 ==

== ENCOUNTER → 2025-03-31 07:35 | Outpatient (REF) | payer MEDICARE, SELFPAY | LOC: WDC 07:35 | PROVIDERS: ATTENDING PHYSICIAN Obstetrics & Gynecology Gynecology; FAMILY PHYSICIAN Nurse Practitioner Adult Health | DX: R92.8 Other abnormal and inconclusive findings on diagnostic imaging of breast (principal) | CPT/HCPCS: 76642 ==

== ENCOUNTER → 2025-04-15 10:53 | Outpatient (REF) | payer MEDICARE, SELFPAY ==
[2025-04-15 12:19] LABS: Hematocrit 46.9 % (37.0-47.0); Hemoglobin 15.3 g/dL (12.0-16.0); Mean Corp Hgb Conc. 32.6 g/dL (33.0-37.0); Mean Corpuscular Volume 87.3 fL (81.0-99.0); Nucleated Red Blood Cells % 0 %; Platelet Count 394 10^3/uL (130-400); Red Cell Dist. Width 13.5 % (11.5-14.5)
[2025-04-15 13:31] LABS: ALT (SGPT) 21 U/L (0-35); AST (SGOT) 26 U/L (14-36); Albumin 4.7 g/dl (3.5-5.0); Alkaline Phosphatase 83 U/L (38-126); Blood Urea Nitrogen 21 mg/dl (7-17); Calcium 10.0 mg/dl (8.4-10.2); Carbon Dioxide 26 mmol/L (22-30); Chloride 104 mmol/L (98-107); Glucose 90 mg/dl (70-99); Potassium 4.9 mmol/L (3.5-5.1); Sodium 140 mmol/L (135-145); Total Protein 7.9 g/dl (6.3-8.2); eGFR > 60.00
== END ==
LOC: REG 10:53
PROVIDERS: ATTENDING PHYSICIAN Internal Medicine Hematology & Oncology; FAMILY PHYSICIAN Nurse Practitioner Adult Health
DX: D47.1 Chronic myeloproliferative disease (principal)
CPT/HCPCS: 36415; 80053; 85025

== ENCOUNTER 2025-04-24 07:15 | Inpatient (IN) | payer MEDICARE, SELFPAY ==
[2025-04-22] VITALS (15 sets, daily range): BP systolic 98–153; BP diastolic 53–80; BMI 29.0; BMI 28.2
[2025-04-22 11:00] LABS: Hematocrit 36.0 % (37.0-47.0); Hemoglobin 12.3 g/dL (12.0-16.0); Mean Corp Hgb Conc. 34.2 g/dL (33.0-37.0); Mean Corpuscular Volume 88.7 fL (81.0-99.0); Nucleated Red Blood Cells % 0 %; Platelet Count 436 10^3/uL (130-400); Red Cell Dist. Width 13.4 % (11.5-14.5)
[2025-04-22 11:08] LABS: INR 1.32; PT 16.9 Sec (11.4-14.6)
[2025-04-22 11:09] LABS: APTT 33.2 Sec (23.4-35.0)
[2025-04-22 11:14] LABS: ALT (SGPT) 17 U/L (0-35); AST (SGOT) 22 U/L (14-36); Albumin 4.1 g/dl (3.5-5.0); Alkaline Phosphatase 73 U/L (38-126); Blood Urea Nitrogen 30 mg/dl (7-17); Calcium 9.5 mg/dl (8.4-10.2); Carbon Dioxide 23 mmol/L (22-30); Chloride 105 mmol/L (98-107); Estimated Creatinine Clearance 56 ml/min; Glucose 136 mg/dl (70-99); Potassium 5.1 mmol/L (3.5-5.1); Sodium 136 mmol/L (135-145); Total Protein 7.1 g/dl (6.3-8.2); eGFR > 60.00
[2025-04-22] MEDS: PROTONIX IV 80 MG IV (13:02)
[2025-04-22] MEDS: PROTONIX 100 IV ×2 (13:07→23:20)
[2025-04-22] MEDS: NSS 500 IV (13:08)
--- NOTE | 2025-04-22 13:14 | ED.GENMED ---
History of Present Illness
General
Chief Complaint: Rectal Bleeding
Source: patient and spouse
Exam Limitations: none
Time Seen by Provider: 04/22/25 10:39
Nursing documentation reviewed up to this point in time: agreed with
History of Present Illness
History of Present Illness:
79-year-old female past medical history of paroxysmal A-fib currently on Eliquis, hypertension, hyperlipidemia, previous pericarditis, intra-abdominal hematoma past presenting to the emergency department today with concerns of rectal bleeding that
started this morning described as initially black in color earlier this morning and now turning red in color. Denies any abdominal pain no cramping no nausea no vomiting. Does feel somewhat weak and tired.
Past History
Past History
ED Past Medical History: Arrthythmia, HTN and Other (Pulmonary emboli, pre-diabetic)
ED Past Surgical History: Cardiac, Cholecystectomy, Orthopedic and Urological
Social History
Tobacco: Non-smoker
Alcohol: Other
Drug: None
Personal:
Living: with family
Employment: Other
Family History
Family History: Other
Review of Systems
Review of Systems
Allergies reviewed?: Yes
All Other Systems: ROS reviewed and negative except as documented in HPI and ROS
Phy Exam
Physical Exam
Physical Exam:
GENERAL: Alert , in no apparent distress
EYE: pupils equal and reactive
NECK: Supple, no significant adenopathy.
ENT: o/p clr, mmm.
CARDIAC: Regular rate and rhythm .
LUNGS: Clear breath sounds bilaterally, no acute respiratory distress, no wheezes/rales/rhonchi
ABDOMEN: Rectal examination revealing black stool mixed with red blood, abdomen is soft, without focal tenderness, no r/g, no cvat
NEUROLOGICAL: Alert and oriented, no focal neuro deficits
SKIN: Warm and dry, skin intact.
MUSCULOSKELETAL: No edema, well perfused.
PSYCH: Normal and appropriate interaction.
Course
Orders/Labs/Results
Orders:
Orders
04/22/25 10:32
Cardiac Monitoring- Treatment ONCE
IV Insert/Care/Rem.- Treatment PRN
O2 Therapy [RESP] Urgent
Titrate/Wean O2 to maintain O2 sat greater than (%): 93
Special Instructions: MAINTAIN CONTINOUS O2 SATS > OR = 93%
Pulse Ox/spot Check [RESP] Urgent
Quantity: 1
Special Instructions: ON ROOM AIR
04/22/25 10:42
Electrocardiogram (*1) Urgent
Reason for Study: Fatigue / Weakness
EKG- Treatment ONCE
04/22/25 10:46
Type+Screen Urgent
Complete Blood Count/With Diff Urgent
Comprehensive Metabolic Panel Urgent
PTT Urgent
Prothrombin Time Urgent
04/22/25 12:32
Pantoprazole [Protonix IV] 80 mg IV NOW STA
04/22/25 12:33
0.9% Sodium Chloride 500 ml [Nss] 500 ml IV BOLUS
04/22/25 12:45
Pantoprazole 80 mg/100 ml Nss [Protonix] 80 mg in 100 ml IV Q10H
04/22/25 13:43
Propofol [Diprivan] 20 ml .ROUTE .STK-MED
Abnormal Lab Results
04/22/25
10:46
WBC 19.3 H 10^3/uL
(4.8-10.8)
RBC 4.06 L 10^6/uL
(4.20-5.40)
Hct 36.0 L %
(37.0-47.0)
Plt Count 436 H 10^3/uL
(130-400)
Abs Immat Gran (auto) 0.1 H 10^3/uL
(0-0.05)
Absolute Neuts (auto) 16.3 H 10^3/uL
(1.4-6.5)
Absolute Monos (auto) 1.2 H 10^3/uL
(0.1-0.6)
Immature Gran % 0.6 H %
(0-0.5)
Neutrophils % 84.6 H %
(42.2-75.2)
Lymphocytes % 7.6 L %
(20.5-51.1)
PT 16.9 H Sec
(11.4-14.6)
BUN 30 H mg/dl
(7-17)
Glucose 136 H mg/dl
(70-99)
04/22/25 10:46
04/22/25 10:46
Vital Signs
Initial and Last Documented VS:
Initial Vital Signs
Temp Pulse Resp BP Pulse Ox
97.5 F 85 20 103/57 98
04/22/25 10:20 04/22/25 10:20 04/22/25 10:20 04/22/25 10:20 04/22/25 10:20
Last Documented Vital Signs
Temp Pulse Resp BP Pulse Ox
99.3 F 77 15 106/60 98
04/22/25 13:15 04/22/25 13:00 04/22/25 13:00 04/22/25 13:00 04/22/25 13:15
MDM/Problems Addressed
MDM/Problems Addressed:
7-year-old female presenting with GI bleed. Initially black in color earlier this morning then a stool red in color prior to arrival. Here there is a mixture of black and red on rectal examination. Last dose of Eliquis was last night. No
abdominal pain to palpation. Blood pressure in the 90s over 60s otherwise vital signs are normal. Hemoglobin 12.3 from baseline of 15 elevated BUN. She was started on fluids and started on Protonix for potential upper GI bleed. Case was
discussed with GI. GI took the patient immediately to EGD for further assessment of upper GI bleed. Patient admitted to internal medicine service.
*Pulse Oximetry
SaO2: 98
Oxygen Mode of Delivery: Room air
Patient hypoxic: no (98)
*Critical Care Note
Total Time (30-74mins, 75-104mins- exclusive of procedures): Not Applicable
ED Attending Note
-
Portions of this chart may have been created with voice recognition software.� Occasional wrong word or��sound alike� substitutions may have occurred due to the inherent limitations of voice recognition software.
Discharge Plan
Departure
Patient Disposition: Home (Routine Discharge)
Date of Disposition: 04/22/25
Time of Disposition: 13:55
Patient with high blood pressure during this ER visit?: No
Condition: Good
Covid-19: Not Applicable
Discharge Problem:
GI bleed
Prescriptions:
No Action
Citrucel 500 mg Tablet
500 mg PO BID
fluoxetine 20 mg Capsule
20 mg PO DAILY
rosuvastatin 5 mg Tablet
5 mg PO HS
omeprazole magnesium [Prilosec OTC] 20 mg Tablet,Delayed Release (Dr/Ec)
20 mg PO BID
amlodipine 5 mg Tablet
5 mg PO HS
Eliquis 5 mg Tablet
5 mg PO BID
cholecalciferol (vitamin D3) [Vitamin D3] 50 mcg (2,000 unit) Capsule
50 mcg PO DAILY
Fiber Supplement (inulin) 2 gram Tablet,Chewable
2 tab PO DAILY
acetaminophen [Tylenol] 325 mg Tablet
650 mg PO QIDPRN PRN (Reason: mild pain)
Theragen Tablet
1 tab PO DAILY
aspirin 81 mg tablet,delayed release (DR/EC)
81 mg PO QPM
metoprolol succinate 25 mg tablet extended release 24 hr
25 mg PO BID
Referrals:
Scooter Newman CRNP [Family Provider, Internal Medicine]
Interventions
Interventions:
*Risk Screen - Suicide Last Done: 04/22/25 10:20
*General Assessment Last Done: 04/22/25 10:20
*Neglect/Abuse Screening Last Done: 04/22/25 10:20
*ED- Fall Risk Assessment Last Done: 04/22/25 10:44
*ED COVID-19 Vaccine History Last Done: 04/22/25 10:44
*ED Influenza Vaccine History Last Done: 04/22/25 10:44
YE-Dtaesb-Lmrivhmpnt Assessment Last Done: 04/22/25 11:02
ED- Cardiac Assessment Last Done: 04/22/25 11:02
ED- Pulmonary Assessment Last Done: 04/22/25 11:02
Discharge Date and Time
Print Language: IRISH
--- NOTE | 2025-04-22 14:09 | HPS.HSE ---
Addendum entered and electronically signed by Bernardo Miguel MD 04/22/25 17:04:
This is an addendum to H&P written by Lisa Ortiz on 04/22/2025. �Patient seen and examined independently with [employer]. 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
exploratory laparotomy and repair of pancreaticoduodenal artery pseudoaneurysm in 2022, paroxysmal atrial fibrillation on Eliquis status post ablation and left atrial appendage occlusion with atrial clip in 2020, SVT, history of DVT 2004, vasovagal
presyncope, hypertension, presenting with rectal bleeding today initially black in color now red.� Also with shortness of breath and presyncope. No abdominal pain or nausea or vomiting. �Does feel fatigued.
Vital signs show blood pressure as low as 98/53.
Labs show leukocytosis of 19. �Hemoglobin�12.3 from 15.3 one week prior.
IV fluids given. �Protonix drip started. �Hold�Eliquis. �Patient taken for urgent EGD which showed hiatal hernia but no acute bleeding. GI recommended CT angio abdomen and pelvis and outpatient capsule endoscopy.� Trend hemoglobin.�
Original Note:
Family Physician
-
Family Physician: Scooter Newman
Chief Complaint
-
rectal bleeding
History of Present Illness
Patient is a 79-year-old female with past medical history of hypertension, hyperlipidemia, a-fib, GERD and depression who presented to [facility] ED for evaluation of rectal bleeding. Patient reports waking at approximately 0400 this morning and having
bloody bowel movement where the stool was dark she had 2-3 more episodes and stool became mixed with bright red blood. Patient endorses shortness of breath. Denies any dizziness, chest pain, palpitations, nausea, vomiting or abdominal pain.
Medical History
Past Medical History
Past Medical History: Reports Other
Additional Past Medical History:
Hypertension
Hyperlipidemia
Persistent A-Fib s/p Cardioversion / Ablation / MAZE
SVT s/p Ablation
Depression
GERD
History of PE (2019)
Pericarditis
Lumbar DDD
Obstructive Sleep Apnea
Past Surgical History: Reports Other
Additional Past Surgical History:
SVT Ablation (2015)
PVI Ablation (2019)
MAZE / RUFINO Clip (2020)
Cholecystectomy
Right Breast Biopsy (benign)
Lumbar Surgery
Tubal Ligation
Exploratory laparotomy, lysis of adhesions, abdominal wall closure (SANTOSH) 08/21/22
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
Social History
Tobacco: Non-smoker
Alcohol: None
Drug: None
Personal:
Living: With Family
Family History
Family History: Other (Patient denies any familial health issues.)
Allergies / Home Medications
Allergies reflects when Allergies were last updated in [facility].
Home Medications with original date entered in [facility]
Allergy/Medication List:
Allergies
Allergy/AdvReac Type Severity Reaction Status Date / Time
phenazopyridine Allergy pt unsure Verified 04/22/25 10:23
of allergy
Sulfa (Sulfonamide Allergy Rash Verified 04/22/25 10:23
Antibiotics)
lisinopril AdvReac COUGH Verified 04/22/25 10:23
Home Medications
methylcellulose (laxative) 500 mg tablet (Citrucel) 500 mg PO BID Constipation 08/21/22
fluoxetine 20 mg capsule 20 mg PO DAILY Mental Health/Anxiety 12/05/22
rosuvastatin 5 mg tablet 5 mg PO HS High Cholesterol 12/05/22
omeprazole magnesium 20 mg tablet,delayed release (Prilosec OTC) 20 mg PO BID Gastrointestinal Issue 11/15/23
amlodipine 5 mg tablet 5 mg PO HS Blood Pressure 10/16/24
apixaban 5 mg tablet (Eliquis) 5 mg PO BID Blood Clot Prevention/Tx 10/16/24
cholecalciferol (vitamin D3) 50 mcg (2,000 unit) capsule (Vitamin D3) 50 mcg PO DAILY up 02/23/25
inulin-sorbitol 2 gram chewable tablet (Fiber Supplement (inulin)) 2 tab PO DAILY Constipation 02/23/25
acetaminophen 325 mg tablet (Tylenol) 650 mg PO QIDPRN PRN mild pain 04/22/25
aspirin 81 mg tablet,delayed release 81 mg PO QPM Blood Clot Prevention/Tx 04/22/25
metoprolol succinate 25 mg tablet,extended release 24 hr 25 mg PO BID Heart Disease/Condition 04/22/25
therapeutic multivitamin 1 tab PO DAILY Supplement 04/22/25
Review of Systems
-
History Source: Patient
Constitutional: Denies Fever or Chills
EENT: Denies Sore Throat
Respiratory: Reports Trouble Breathing (shortness of breath); Denies Cough or Hemoptysis
Cardiac: Denies Chest Pain, Diaphoresis, Palpitations or Syncope
Abdomen/GI: Reports Bloody Stools (started as dark then bright red ); Denies Abdominal Pain, Nausea or Vomiting
: Denies Dysuria, Frequency or Urgency
Musculoskeletal: Denies Joint Pain
Skin: Denies Rash
Neurological: Denies Dizzy, Headache, Weakness or Numbness
Physical Exam
Vital Signs
Vital Signs
Temp Pulse Resp BP Pulse Ox
99.3 F 77 15 106/60 98
04/22/25 13:15 04/22/25 13:00 04/22/25 13:00 04/22/25 13:00 04/22/25 13:15
Physical Exam
General: Well Developed, Well Nourished, No Apparent Distress, Comfortable and Conversant
HEENT: NormoCephalic, PERRLA, Nose Appears Normal and Ears Appear Normal
Respiratory: Clear and Non Labored Respirations; No Wheezes, Rales or Rhonchi
Cardiac: Regular Rhythm; No Murmur, Rub, Gallop or Peripheral Edema
GI: Soft, Non Tender, Non Distended and Normal Bowel Sounds
Rectal: Black (combination of black and red on exam by ED provider ) and Red
Musculoskeletal: No Clubbing, No Cyanosis and No Edema
Neuro: Awake and AO x 3
Psych: Calm
Laboratory Results
-
04/22/25 10:46
04/22/25 10:46
Laboratory Results
PT 16.9 Sec (11.4-14.6) H 04/22/25 10:46
INR 1.32 04/22/25 10:46
APTT 33.2 Sec (23.4-35.0) 04/22/25 10:46
Total Bilirubin 0.8 mg/dl (0.2-1.3) 04/22/25 10:46
AST 22 U/L (14-36) 04/22/25 10:46
ALT 17 U/L (0-35) 04/22/25 10:46
Alkaline Phosphatase 73 U/L (38-126) 04/22/25 10:46
Data Reviewed
-
Lab Data: Labs Reviewed by me (WBC 19.3, hgb 12.3, hct 36.0, neut 84.6)
Impression/Plan
-
IMPRESSION/PLAN:
#rectal bleeding
WBC 19.3, hgb 12.3, hct 36.0, neut 84.6
ED reported there is a mixture of black and red on rectal examination
EKG: SINUS RHYTHM WITH 1ST DEGREE A-V BLOCK WITH PREMATURE SUPRAVENTRICULAR COMPLEXES
LEFT AXIS DEVIATION
POSSIBLE ANTERIOR INFARCT (CITED ON OR BEFORE 22-Dec-2020)
Blood consent obtained in ED, scanned to chart
- Admit to telemetry
- Consult GI
- Protonix gtt
- NPO
- STAT GI lab
- Abd/pel CT per GI
#Hypertension
- continue amlodipine
#Hyperlipidemia
- continue rosuvastatin
#Persistent A-Fib s/p Cardioversion / Ablation / MAZE
#SVT s/p Ablation
- hold Eliquis
- continue metoprolol
#Depression
- continue fluoxetine
#GERD
- hold omeprazole while on Protonix gtt
#Obstructive Sleep Apnea
Code status: full code
DVT prophylaxis: SCDs
--- NOTE | 2025-04-22 14:48 | CON.GI ---
Addendum entered and electronically signed by Estefania Nelson MD 04/22/25 15:54:
Over 75 minutes was spent reviewing chart her prior admissions, test consultant notes, labs, prior imaging, prior procedures including endoscopy and colonoscopy and office notes, examining patient and discussing with patient and at bedside coming
up with treatment plan
Original Note:
Consultation
-
Date/Time Consultation Requested: 04-22-25
Date/Time Consultation Performed: 04-22-25
Requesting Provider: Yosvany Reagan PA-C
Performing Provider: Dr. Estefania Nelson
Reason for Consultation: GI bleed
Medical History
Chief Complaint / HPI
Chief Complaint: Blood in stool
History of Present Illness:
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 for suspected
acute GI bleed. She had been in her usual state of health until this morning when she noticed black-colored stools which had turned red in color prior to her arrival to the ER. In the ER, her blood work was notable for a hemoglobin of 12.3 which is
a drop of 3 points from 15.3 a month ago. BUN 30. Borderline hypotensive. She was started on a pantoprazole drip and taken in for an urgent esophagogastroduodenoscopy. No bleeding source identified on EGD. Of note, she had an uncomplicated and
unremarkable EGD in 2023, and an incomplete colonoscopy due to a stricture in the descending colon - she then had an unremarkable CT virtual colonoscopy.
Past Medical History
Past Medical History: Other (Persistent A-Fib s/p Cardioversion / Ablation / MAZE SVT s/p Ablation Hypertension History of PE (2019) Pericarditis Lumbar DDD)
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
Social History
Tobacco: Non-Smoker
Alcohol: None
Drug: None
Personal:
Living: With Family
Employment: Retired
Family History
Family History: Reviewed & Not Pertinent
Allergies / Home Medications
Allergy/AdvReac Type Severity Reaction Status Date / Time
phenazopyridine Allergy pt unsure Verified 04/22/25 10:23
of allergy
Sulfa (Sulfonamide Allergy Rash Verified 04/22/25 10:23
Antibiotics)
lisinopril AdvReac COUGH Verified 04/22/25 10:23
�Medication �Instructions �Recorded
methylcellulose (laxative) 500 mg 500 mg PO BID Constipation 08/21/22
tablet (Citrucel)
fluoxetine 20 mg capsule 20 mg PO DAILY Mental 12/05/22
Health/Anxiety
rosuvastatin 5 mg tablet 5 mg PO HS High Cholesterol 12/05/22
omeprazole magnesium 20 mg 20 mg PO BID Gastrointestinal Issue 11/15/23
tablet,delayed release (Prilosec
OTC)
amlodipine 5 mg tablet 5 mg PO HS Blood Pressure 10/16/24
apixaban 5 mg tablet (Eliquis) 5 mg PO BID Blood Clot 10/16/24
Prevention/Tx
cholecalciferol (vitamin D3) 50 50 mcg PO DAILY up 02/23/25
mcg (2,000 unit) capsule (Vitamin
D3)
inulin-sorbitol 2 gram chewable 2 tab PO DAILY Constipation 02/23/25
tablet (Fiber Supplement (inulin))
acetaminophen 325 mg tablet 650 mg PO QIDPRN PRN mild pain 04/22/25
(Tylenol)
aspirin 81 mg tablet,delayed 81 mg PO QPM Blood Clot 04/22/25
release Prevention/Tx
metoprolol succinate 25 mg 25 mg PO BID Heart 04/22/25
tablet,extended release 24 hr Disease/Condition
therapeutic multivitamin 1 tab PO DAILY Supplement 04/22/25
Review of Systems
-
All other systems: A 12 pt ROS was Negative except as stated above in HPI
Vital Signs
Temp Pulse Resp BP Pulse Ox
99.3 F 77 15 106/60 98
04/22/25 13:15 04/22/25 13:00 04/22/25 13:00 04/22/25 13:00 04/22/25 13:15
Physical Exam
Exam
General: No Apparent Distress and Comfortable
HEENT: Normocephalic, Anicteric and Atraumatic
Respiratory: Clear and Non Labored Respirations
Cardiac: S1/S2 and Regular Rhythm; Negative Murmur or Rub
GI: Soft, Non Tender, Non Distended and Normal Bowel Sounds; Negative Organomegaly
Genito-urinary: No Costovertebral Tender
Musculoskeletal: No Clubbing, No Cyanosis and No Edema
Neuro: Awake, Alert, Oriented, No Motor Deficits and Nonfocal/Grossly Intact
Psych: Calm
Results
WBC 19.3 10^3/uL (4.8-10.8) H 04/22/25 10:46
Hgb 12.3 g/dL (12.0-16.0) 04/22/25 10:46
Hct 36.0 % (37.0-47.0) L 04/22/25 10:46
MCV 88.7 fL (81.0-99.0) 04/22/25 10:46
Plt Count 436 10^3/uL (130-400) H 04/22/25 10:46
Absolute Neuts (auto) 16.3 10^3/uL (1.4-6.5) H 04/22/25 10:46
PT 16.9 Sec (11.4-14.6) H 04/22/25 10:46
INR 1.32 04/22/25 10:46
APTT 33.2 Sec (23.4-35.0) 04/22/25 10:46
Sodium 136 mmol/L (135-145) 04/22/25 10:46
Potassium 5.1 mmol/L (3.5-5.1) 04/22/25 10:46
Chloride 105 mmol/L (98-107) 04/22/25 10:46
Carbon Dioxide 23 mmol/L (22-30) 04/22/25 10:46
BUN 30 mg/dl (7-17) H 04/22/25 10:46
Creatinine 0.8 mg/dL (0.6-1.0) 04/22/25 10:46
Calcium 9.5 mg/dl (8.4-10.2) 04/22/25 10:46
Total Bilirubin 0.8 mg/dl (0.2-1.3) 04/22/25 10:46
AST 22 U/L (14-36) 04/22/25 10:46
ALT 17 U/L (0-35) 04/22/25 10:46
Alkaline Phosphatase 73 U/L (38-126) 04/22/25 10:46
Diagnostic Image Results:
* 02-04-24: CT virtual colonoscopy: No clinically significant polyps are identified. Diverticulosis. Probable short 1 cm inflammatory stricture at the junction of the proximal and mid sigmoid colon. Elongated, redundant, and tortuous colon.
* 10-09-24: CTA A-P: Aortic atherosclerotic changes without aneurysmal dilation. Severe stenosis at the origin of the celiac axis, unchanged from previous. Mild ectasia of the celiac axis distal to this, 1.0 cm diameter. This is unchanged from
prior. Multifocal mild ectasia of the splenic artery as above. Postoperative changes related to previous repair of SMA branch aneurysm or pseudoaneurysm as seen previously. Mild intrahepatic biliary dilation. Dilation of the common bile duct up to
1.3 cm in diameter, similar to prior. Multiple bilateral renal cysts and probable cysts, including multiple bilateral hyperdense/hemorrhagic cysts as above. Diverticulosis without diverticulitis.
Prior GI Procedures:
EGD:
* 11-15-23: - Normal esophagus.
- Erythematous mucosa in the antrum. Biopsied.
- Normal examined duodenum. Biopsied.
Colonoscopy:
* 11-15-23: - Non-bleeding internal hemorrhoids.
- Diverticulosis in the sigmoid colon and in the
descending colon.
- Stricture in the descending colon, unable to
transverse despite repositioning and manual pressure.
- No specimens collected.
Assessment / Plan
-
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 for suspected
acute GI bleed. She had been in her usual state of health until this morning when she noticed black-colored stools which had turned red in color prior to her arrival to the ER. In the ER, her blood work was notable for a hemoglobin of 12.3 which is
a drop of 3 points from 15.3 a month ago. BUN 30. Borderline hypotensive. She was started on a pantoprazole drip and taken in for an urgent esophagogastroduodenoscopy. No bleeding source identified on EGD. Of note, she had an uncomplicated and
unremarkable EGD in 2023, and an incomplete colonoscopy due to a stricture in the descending colon - she then had an unremarkable CT virtual colonoscopy.
Impression:
* Acute blood loss anemia, suspected secondary to an upper GI bleed
* Paroxysmal atrial fibrillation
* Chronic anticoagulation, with apixaban
* Non-bleeding hemorrhoids
* History of colon polyps
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
Other medical problems:
* Nephrolithiasis
* CAD
* Hyperlipidemia
* History of EMILY-CPAP 6 cm intolerant
* Insomnia
* Hypertension
* History of pericarditis 2020
* History of DVT and PE 2004
* History of SVT with history of ablation-PVI 12/13/2018, PVI 11/06/2019 and cardioversion 10/2020
* History of Vasovagal presyncope 08/25/2022
* History of V-fib arrest-in hospital-08/30/2022
Recommendations:
- EGD negative for a source of bleed.
- Check stat CTA A-P.
- Clear diet if CTA unremarkable.
- Switch to PO PPI.
- Pill endoscopy as an outpatient if no source is identified on the CT.
- History not very concerning for a lower GI bleed so no clear indication for a colonoscopy as of now.
-
-
Thank you for consultation and allowing me to participate in the patient's care. Please call the amortization clerk GI physician during the after hours with any questions or concerns.
[2025-04-22 15:55] LABS: Hematocrit 32.0 % (37.0-47.0); Hemoglobin 10.8 g/dL (12.0-16.0)
--- NOTE | 2025-04-22 17:05 | W.PN.UPDATE ---
Update Note
Progress Note Update
Patients hemoglobin continued to drop after arrival at ED.
Initial hgb 12.3 at ED arrival and 10.8 5 hours later at 1549. (hgb on 04/15/2025 15.3)
1 unit PRBCs ordered for active bleeding.
[2025-04-22] MEDS: TOPROL XL 25 MG PO (21:14)
[2025-04-22 22:44] LABS: Hematocrit 34.3 % (37.0-47.0); Hemoglobin 11.5 g/dL (12.0-16.0)
[2025-04-22] MEDS: NORVASC 5 MG PO (23:19)
[2025-04-22] MEDS: CRESTOR 5 MG PO (23:19)
[2025-04-23] VITALS (7 sets, daily range): BP systolic 104–135; BP diastolic 55–77; BMI 28.2
[2025-04-23] MEDS: MELATONIN 5 MG PO ×2 (00:10→22:31)
--- NOTE | 2025-04-23 03:13 | W.PN.UPDATE ---
Update Note
Progress Note Update
~ 3 am Pt had large bloody BM, Patient c/o dizziness with sitting up on side of bed. Vital signs stable, AM labs ordered will get early.
Hgb 10.2, previously 11.5. Vital signs stable. Ordered serial H&H Q6H. Transfuse if Hgb <8, d/t active bleeding.
[2025-04-23 05:46] LABS: Blood Urea Nitrogen 24 mg/dl (7-17); Calcium 9.1 mg/dl (8.4-10.2); Carbon Dioxide 26 mmol/L (22-30); Chloride 110 mmol/L (98-107); Estimated Creatinine Clearance 49 ml/min; Glucose 107 mg/dl (70-99); Potassium 4.7 mmol/L (3.5-5.1); Sodium 138 mmol/L (135-145); eGFR > 60.00
[2025-04-23 05:49] LABS: Hematocrit 30.5 % (37.0-47.0); Hemoglobin 10.2 g/dL (12.0-16.0); Mean Corp Hgb Conc. 33.4 g/dL (33.0-37.0); Mean Corpuscular Volume 86.2 fL (81.0-99.0); Platelet Count 332 10^3/uL (130-400); Red Cell Dist. Width 15.0 % (11.5-14.5)
[2025-04-23] MEDS: TOPROL XL 25 MG PO ×2 (08:24→19:54)
[2025-04-23] MEDS: ZOSYN 50 IV ×3 (08:25→19:53)
[2025-04-23] MEDS: PROZAC 20 MG PO (08:26)
[2025-04-23] MEDS: PROTONIX 100 IV ×2 (08:27→19:53)
--- NOTE | 2025-04-23 09:33 | W.PN.HOSP.TC ---
Addendum entered and electronically signed by Thad Colbert MD 04/23/25 09:42:
s/p 1 unit PRBC on 04/22/25
Addendum entered and electronically signed by Thad Colbert MD 04/23/25 09:36:
#Paroxysmal Afib
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
telemetry
cont rate control
hold Eliquis until Ok to restart as per GI
Original Note:
Today's Communication/Plan
-
see PN
Assessment / Plan
Assessment / Plan
79yo F with PMHx of SMA branch aneurism repair, cholecystectomy, SSS s/p PPM< Afib on Eliquis, HTN, anxiety, HLD, coronary artery dissection, VT, CAD s/p CA, pancreaticoduodenal aneurism, came with multiple episodes of dark red blood per rectum
after 2days of progressive weakness at home. Had more hematochezia in the hospital so EGD was done on 04/22/25 not showing signs of bleeding , so abd CTA ordered, that did not show active blood exrtravasation, but showed acute uncomplicated
diverticulitis
A/P:
#Acute blood loss anemia 2/2 acute uncomplicated diverticulitis exacerbated by Eliquis
serial H&H, transfuse as needed, keep Hgb>8, consent signed
Hold anticoagulation, antiplatelets and NSAIDs
NPO and advance diet as tolerated
Last clonoscopy 1 year ago with , might need to repeat in 4-6 weeks if not planned on this admission - defer to GI
GI consult
PPI drip
two large bore IV
Zosyn
#small periumbilical hernia
#DJD
#Hx of Posterior decompression of L5-S1
#b/l renal cyst
no follow up advised
tylenol and PT as needed
#MAlaise
multifactorial
PT/OT when HGb stable
#Celiac artery stenosis
unchanged
#Lingular atelectasis
IS
DVT ppx SCDs
Full code
I have spent at least 56min reviewing chart, test results, communication with consultants, bedside and providing direct patient care
Anticipated Discharge: > 48 hours
Subjective/Interval History
-
Date of Service: April 23, 2025
Objective Data
-
Labs:
Laboratory Results
04/22/25 04/23/25 04/23/25
22:35 04:45 11:00
WBC 12.1 H
Hgb 11.5 L 10.2 L Pending
Hct 34.3 L 30.5 L Pending
Plt Count 332 D
Sodium 138
Potassium 4.7
Chloride 110 H
Carbon Dioxide 26
BUN 24 H
Creatinine 0.9
Glucose 107 H
Calcium 9.1
04/23/25
17:00
WBC
Hgb Pending
Hct Pending
Plt Count
Sodium
Potassium
Chloride
Carbon Dioxide
BUN
Creatinine
Glucose
Calcium
Vital Signs:
Vital Signs
Temp Pulse Resp BP Pulse Ox
98.1 F 90 17 124/77 97
04/23/25 07:00 04/23/25 07:00 04/23/25 07:00 04/23/25 07:00 04/23/25 07:00
I&O
04/22/25 04/23/25 04/24/25
06:59 06:59 06:59
Intake Total 250 / 250
Balance 250 / 250
Review of Systems
-
History Source: Patient
All other systems: Reviewed and negative
Constitutional: Reports Fatigue
Physical Exam
-
General: No Apparent Distress
HEENT: Normocephalic
Respiratory: Clear to Auscultation
Cardiac: Regular Rhythm
GI: Soft, Nondistended and Tender (LLQ)
Genito-urinary: No Costovertebral Tender
Musculoskeletal: No Clubbing, No Cyanosis and No Edema
Skin: Warm
Neuro: Awake, Alert, Oriented and AO x 3
Psych: Calm
[2025-04-23 11:30] LABS: Hematocrit 30.9 % (37.0-47.0); Hemoglobin 10.2 g/dL (12.0-16.0)
--- NOTE | 2025-04-23 14:51 | W.PN.GI.CBS2 ---
Today's Communication / Plan
-
Hgb up to 11.5 after PRBC, but down to 10.2 today, repeat stable at 10.2
Trend Hgb and monitor BMs
Keep on clears
If bleeding stops, resume eliquis- very concerned about need to resume and asked me to confer with Dr Iraida Stern when she is back in office
If bleeding persists, consider prep for colonoscopy. She has tortuous colon, incomplete colonoscopy requiring virtual colon last year
Also ok to continue zosyn for diverticulitis on CT, but clinical she is asymptomatic. Probably does not need a prolonged course
Assessment / Plan
-
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
acute GI bleed. She had been in her usual state of health until this morning when she noticed black-colored stools which had turned red in color prior to her arrival to the ER. In the ER, her blood work was notable for a hemoglobin of 12.3 which is
a drop of 3 points from 15.3 a month ago. BUN 30. Borderline hypotensive. She was started on a pantoprazole drip and taken in for an urgent esophagogastroduodenoscopy. No bleeding source identified on EGD. Of note, she had an uncomplicated and
unremarkable EGD in 2023, and an incomplete colonoscopy due to a stricture in the descending colon - she then had an unremarkable CT virtual colonoscopy.
04/22 PRBC 1 unit
04/22 EGD- Hiatal hernia
Impression
Dark red bloody BM. EGD negative
CTA negative for active bleeding, but shows divertculitis at hepatic flexure. On zosyn
Paroxysmal atrial fibrillation on eliquis
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
CAD
History of EMILY-CPAP 6 cm intolerant
History of DVT and PE 2004
History of SVT with history of ablation-PVI 12/13/2018, PVI 11/06/2019 and cardioversion 10/2020
History of V-fib arrest-in hospital-08/30/2022
Subjective
Subjective
Date of Service: April 23, 2025
Had large dark bloody BM at 3am, none since then. Denies abd pain
Objective
Data Reviewed
Laboratory Data:
Laboratory Results
04/23/25 04:45
Laboratory Results
PT 16.9 Sec (11.4-14.6) H 04/22/25 10:46
INR 1.32 04/22/25 10:46
APTT 33.2 Sec (23.4-35.0) 04/22/25 10:46
Total Bilirubin 0.8 mg/dl (0.2-1.3) 04/22/25 10:46
AST 22 U/L (14-36) 04/22/25 10:46
ALT 17 U/L (0-35) 04/22/25 10:46
Alkaline Phosphatase 73 U/L (38-126) 04/22/25 10:46
Vital Signs and I&O:
Vital Signs
Temp Pulse Resp BP Pulse Ox
98.3 F 77 18 115/59 98
04/23/25 11:00 04/23/25 11:00 04/23/25 11:00 04/23/25 11:00 04/23/25 11:00
I&O
04/22/25 04/23/25 04/24/25
06:59 06:59 06:59
Intake Total 250 / 250
Balance 250 / 250
Physical Exam
Physical Exam
GI: Soft, Non Distended and Non Tender
[2025-04-23] MEDS: CRESTOR 5 MG PO (22:31)
[2025-04-23] MEDS: NORVASC 5 MG PO (22:31)
[2025-04-24] MEDS: ZOSYN 50 IV ×4 (02:32→21:30)
[2025-04-24 03:48] VITALS: BP 112/64
[2025-04-24] MEDS: PROTONIX 100 IV (05:36)
[2025-04-24 06:34] LABS: Hematocrit 27.5 % (37.0-47.0); Hemoglobin 9.2 g/dL (12.0-16.0); Mean Corp Hgb Conc. 33.5 g/dL (33.0-37.0); Mean Corpuscular Volume 87.6 fL (81.0-99.0); Nucleated Red Blood Cells % 0 %; Platelet Count 318 10^3/uL (130-400); Red Cell Dist. Width 14.7 % (11.5-14.5)
[2025-04-24 06:45] LABS: ALT (SGPT) 12 U/L (0-35); AST (SGOT) 17 U/L (14-36); Albumin 3.0 g/dl (3.5-5.0); Alkaline Phosphatase 52 U/L (38-126); Blood Urea Nitrogen 23 mg/dl (7-17); Calcium 9.0 mg/dl (8.4-10.2); Carbon Dioxide 27 mmol/L (22-30); Chloride 108 mmol/L (98-107); Estimated Creatinine Clearance 44 ml/min; Glucose 94 mg/dl (70-99); Potassium 4.0 mmol/L (3.5-5.1); Sodium 137 mmol/L (135-145); Total Protein 5.7 g/dl (6.3-8.2); eGFR 56.95
[2025-04-24 07:15] VITALS: BP 126/66
[2025-04-24] MEDS: PROZAC 20 MG PO (08:11)
[2025-04-24] MEDS: TOPROL XL 25 MG PO ×2 (08:11→21:21)
--- NOTE | 2025-04-24 10:11 | W.PN.HOSP.TC ---
Today's Communication/Plan
-
hematochezia overnight - cont serial H&H
GI informed
COnt Zosyn, ut minor inflammation, questionable if even increasing risk for colonoscopy
Assessment / Plan
Assessment / Plan
79yo F with PMHx of SMA branch aneurism repair, cholecystectomy, SSS s/p PPM< Afib on Eliquis, HTN, anxiety, HLD, coronary artery dissection, [place], CAD s/p [place], pancreaticoduodenal aneurism, came with multiple episodes of dark red blood per rectum
after 2days of progressive weakness at home. Had more hematochezia in the hospital so EGD was done on 04/22/25 not showing signs of bleeding , so abd CTA ordered, that did not show active blood extravasation, but showed MINIMAL acute uncomplicated
diverticulitis. Continued to have hematochezia while hoispitalized
A/P:
#Acute blood loss anemia 2/2 acute uncomplicated diverticulitis exacerbated by Eliquis
serial H&H, transfuse as needed, keep Hgb>8, consent signed
Hold anticoagulation, antiplatelets and NSAIDs
NPO and advance diet as tolerated
Last clonoscopy 1 year ago with , might need to repeat in 4-6 weeks if not planned on this admission - defer to GI
GI consult
PPI drip
two large bore IV
Zosyn
#small periumbilical hernia
#DJD
#Hx of Posterior decompression of L5-S1
#b/l renal cyst
no follow up advised
tylenol and PT as needed
#MAlaise
multifactorial
PT/OT when HGb stable
#Celiac artery stenosis
unchanged
#Lingular atelectasis
IS
DVT ppx SCDs
Full code
I have spent at least 51min reviewing chart, test results, communication with consultants, bedside and providing direct patient care
Anticipated Discharge: > 48 hours
Subjective/Interval History
-
Date of Service: April 24, 2025
Objective Data
-
Labs:
Laboratory Results
04/24/25 04/24/25 04/24/25
06:07 14:00 22:00
WBC 8.3
Hgb 9.2 L Pending Pending
Hct 27.5 L Pending Pending
Plt Count 318
Sodium 137
Potassium 4.0
Chloride 108 H
Carbon Dioxide 27
BUN 23 H
Creatinine 1.0
Glucose 94
Calcium 9.0
Total Bilirubin 0.6
AST 17
ALT 12
Alkaline Phosphatase 52
Vital Signs:
Vital Signs
Temp Pulse Resp BP Pulse Ox
97.6 F 90 16 126/66 97
04/24/25 07:15 04/24/25 07:15 04/24/25 07:15 04/24/25 07:15 04/24/25 07:15
I&O
04/23/25 04/24/25 04/25/25
06:59 06:59 06:59
Intake Total 250 / 250 580 / 580
Balance 250 / 250 580 / 580
Review of Systems
-
History Source: Patient
All other systems: Reviewed and negative
Abdomen/GI: Reports Bloody Stools
Physical Exam
-
General: No Apparent Distress
HEENT: Normocephalic
Respiratory: Clear to Auscultation
Cardiac: Regular Rhythm
GI: Soft
Neuro: Awake, Alert, Oriented and AO x 3
--- NOTE | 2025-04-24 10:27 | W.PN.GI.CBS2 ---
Today's Communication / Plan
-
Given her ongoing bleeding, will prep for colonoscopy in AM
If more active bleeding, check repeat CTA. CTA negative on admission two days ago
Trend Hgb.
Cont zosyn. She is non tender on exam so I believe it is safe to attempt colonoscopy despite her diverticulitis seen on CT at hepatic flexure
Assessment / Plan
-
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
acute GI bleed. She had been in her usual state of health until this morning when she noticed black-colored stools which had turned red in color prior to her arrival to the ER. In the ER, her blood work was notable for a hemoglobin of 12.3 which is
a drop of 3 points from 15.3 a month ago. BUN 30. Borderline hypotensive. She was started on a pantoprazole drip and taken in for an urgent esophagogastroduodenoscopy. No bleeding source identified on EGD. Of note, she had an uncomplicated and
unremarkable EGD in 2023, and an incomplete colonoscopy due to a stricture in the descending colon - she then had an unremarkable CT virtual colonoscopy.
04/22 PRBC 1 unit
04/22 EGD- Hiatal hernia
Impression
Dark red bloody BM. EGD negative
CTA negative for active bleeding, but shows divertculitis at hepatic flexure. On zosyn
Paroxysmal atrial fibrillation on eliquis
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
CAD
History of EMILY-CPAP 6 cm intolerant
History of DVT and PE 2004
History of SVT with history of ablation-PVI 12/13/2018, PVI 11/06/2019 and cardioversion 10/2020
History of V-fib arrest-in hospital-08/30/2022
Subjective
Subjective
Date of Service: April 24, 2025
Had bloody BM this am. Denies abd pain
Objective
Data Reviewed
Laboratory Data:
Laboratory Results
04/24/25 06:07
Laboratory Results
PT 16.9 Sec (11.4-14.6) H 04/22/25 10:46
INR 1.32 04/22/25 10:46
APTT 33.2 Sec (23.4-35.0) 04/22/25 10:46
Total Bilirubin 0.6 mg/dl (0.2-1.3) 04/24/25 06:07
AST 17 U/L (14-36) 04/24/25 06:07
ALT 12 U/L (0-35) 04/24/25 06:07
Alkaline Phosphatase 52 U/L (38-126) 04/24/25 06:07
Vital Signs and I&O:
Vital Signs
Temp Pulse Resp BP Pulse Ox
97.6 F 90 16 126/66 97
04/24/25 07:15 04/24/25 07:15 04/24/25 07:15 04/24/25 07:15 04/24/25 07:15
I&O
04/23/25 04/24/25 04/25/25
06:59 06:59 06:59
Intake Total 250 / 250 580 / 580
Balance 250 / 250 580 / 580
Physical Exam
Physical Exam
GI: Soft, Non Distended and Non Tender
[2025-04-24 10:56] VITALS: BP 104/59
[2025-04-24 14:05] LABS: Hematocrit 27.2 % (37.0-47.0); Hemoglobin 9.1 g/dL (12.0-16.0)
[2025-04-24 14:56] VITALS: BMI 28.2
[2025-04-24 15:01] VITALS: BP 121/52
[2025-04-24] MEDS: NULYTELY SOLUTION 4 LITERS PO (18:10)
[2025-04-24 21:20] VITALS: BP 123/73
[2025-04-24] MEDS: CRESTOR 5 MG PO (21:21)
[2025-04-24] MEDS: MELATONIN 5 MG PO (21:21)
[2025-04-24] MEDS: NORVASC 5 MG PO (21:21)
[2025-04-24] MEDS: PROTONIX IV 40 MG IV (21:31)
[2025-04-24] MEDS: NSS (PRESERVATIVE FREE) 10 ML IV (21:35)
[2025-04-24 23:21] LABS: Hematocrit 27.6 % (37.0-47.0); Hemoglobin 9.3 g/dL (12.0-16.0)
[2025-04-24 23:31] VITALS: BP 126/65
[2025-04-25] MEDS: ZOSYN 50 IV ×4 (02:52→21:27)
[2025-04-25 03:50] VITALS: BP 136/73
[2025-04-25 06:53] LABS: Hematocrit 26.0 % (37.0-47.0); Hemoglobin 8.8 g/dL (12.0-16.0)
[2025-04-25 07:00] VITALS: BP 130/76
--- NOTE | 2025-04-25 08:57 | W.PN.UPDATE ---
Update Note
Progress Note Update
Colonoscopy done
Difficult colonoscopy due to restricted mobility of distal sigmoid
Scant blood clots seen in distal sigmoid but no active bleeding source identified
Brown stool in proximal colon
Diverticulosis sigmoid, descending
REC:
Resume diet
If active rebleeding, check CTA to identify probable distal sigmoid bleeding site
Trend Hgb
[2025-04-25] MEDS: PROTONIX IV 40 MG IV ×2 (10:18→21:26)
[2025-04-25] MEDS: PROZAC 20 MG PO (10:18)
[2025-04-25] MEDS: TOPROL XL 25 MG PO ×2 (10:18→21:27)
[2025-04-25] MEDS: NSS (PRESERVATIVE FREE) 10 ML IV ×2 (10:18→21:27)
--- NOTE | 2025-04-25 10:36 | W.PN.HOSP.TC ---
Today's Communication/Plan
-
hold eliquis
monitr for bleeding, if [id number] - RN to inform MD and plan for CTA to be repeated as per GI
Zosyn to cont
Assessment / Plan
Assessment / Plan
79yo F with PMHx of SMA branch aneurism repair, cholecystectomy, SSS s/p PPM< Afib on Eliquis, HTN, anxiety, HLD, coronary artery dissection, VT, CAD s/p [place], pancreaticoduodenal aneurism, came with multiple episodes of dark red blood per rectum
after 2days of progressive weakness at home. Had more hematochezia in the hospital so EGD was done on 04/22/25 not showing signs of bleeding , so abd CTA ordered, that did not show active blood extravasation, but showed MINIMAL acute uncomplicated
diverticulitis. Continued to have hematochezia while hoispitalized,
A/P:
#Acute blood loss anemia 2/2 acute uncomplicated diverticulitis exacerbated by Eliquis
serial H&H, transfuse as needed, keep Hgb>8, consent signed
Hold anticoagulation, antiplatelets and NSAIDs
NPO and advance diet as tolerated
Last clonoscopy 1 year ago with
GI consult: s/p EDG on 04/22/25. Colonoscopy done on 04/25/25, showed old blood, no acute bleeding, diverticulitis but scope was not able to pass due to sigmoid anatomy. Monitoring off Eliquis and if significant bleeding re-occurs - CTA
PPI IV BID
two large bore IV
Zosyn
#small periumbilical hernia
#DJD
#Hx of Posterior decompression of L5-S1
#b/l renal cyst
no follow up advised
tylenol and PT as needed
#Malaise
multifactorial
PT/OT when HGb stable
#Celiac artery stenosis
unchanged
#Lingular atelectasis
IS
DVT ppx SCDs
Full code
I have spent at least 55min reviewing chart, test results, communication with consultants, bedside and providing direct patient care
Anticipated Discharge: 24 - 48 hours
Subjective/Interval History
-
Date of Service: April 25, 2025
Objective Data
-
Labs:
Laboratory Results
04/24/25 04/25/25
23:08 06:20
Hgb 9.3 L 8.8 L
Hct 27.6 L 26.0 L
Vital Signs:
Vital Signs
Temp Pulse Resp BP Pulse Ox
97.6 F 91 18 130/76 98
04/25/25 07:00 04/25/25 07:00 04/25/25 07:00 04/25/25 07:00 04/25/25 07:00
I&O
04/24/25 04/25/25 04/26/25
06:59 06:59 06:59
Intake Total 580 / 580 580 / 580
Balance 580 / 580 580 / 580
Review of Systems
-
History Source: Patient
All other systems: Reviewed and negative
Physical Exam
-
General: No Apparent Distress and Comfortable
HEENT: Normocephalic
Respiratory: Clear to Auscultation
GI: Soft, Nontender and Nondistended
Musculoskeletal: No Clubbing, No Cyanosis and No Edema
Neuro: Awake, Alert, Oriented and AO x 3
Psych: Calm
[2025-04-25 11:00] VITALS: BP 131/64
[2025-04-25 13:52] LABS: Hematocrit 26.7 % (37.0-47.0); Hemoglobin 9.1 g/dL (12.0-16.0)
[2025-04-25 15:01] VITALS: BP 141/58
[2025-04-25 20:01] VITALS: BP 123/60
[2025-04-25] MEDS: CRESTOR 5 MG PO (21:27)
[2025-04-25] MEDS: NORVASC 5 MG PO (21:28)
[2025-04-25] MEDS: MELATONIN 5 MG PO (21:28)
[2025-04-25 22:58] LABS: Hematocrit 27.0 % (37.0-47.0); Hemoglobin 9.1 g/dL (12.0-16.0)
[2025-04-25 23:23] VITALS: BP 130/67
[2025-04-26] VITALS (7 sets, daily range): BP systolic 110–126; BP diastolic 52–74
[2025-04-26] MEDS: ZOSYN 50 IV ×2 (01:58→08:45)
[2025-04-26 06:52] LABS: Hematocrit 26.6 % (37.0-47.0); Hemoglobin 9.0 g/dL (12.0-16.0); Mean Corp Hgb Conc. 33.8 g/dL (33.0-37.0); Mean Corpuscular Volume 87.5 fL (81.0-99.0); Nucleated Red Blood Cells % 0 %; Platelet Count 315 10^3/uL (130-400); Red Cell Dist. Width 14.3 % (11.5-14.5)
[2025-04-26 07:14] LABS: Blood Urea Nitrogen 11 mg/dl (7-17); Calcium 9.2 mg/dl (8.4-10.2); Carbon Dioxide 28 mmol/L (22-30); Chloride 108 mmol/L (98-107); Estimated Creatinine Clearance 44 ml/min; Glucose 90 mg/dl (70-99); Potassium 4.0 mmol/L (3.5-5.1); Sodium 138 mmol/L (135-145); eGFR 56.95
--- NOTE | 2025-04-26 08:12 | W.PN.GI.CBS2 ---
Today's Communication / Plan
-
Advance to low residue diet
If no further bleeding, can resume eliquis tomorrow
D/C abx. No evidence of diverticulitis on colonoscopy
Likely diverticular bleed that has resolved, most likely distal sigmoid in area of restricted mobility.
Assessment / Plan
-
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 She presents w
black-colored stools which had turned red in color prior to her arrival to the ER. Hgb 12.3 which is a drop of 3 points from 15.3 a month ago. BUN 30. Borderline hypotensive. Had an incomplete colonoscopy in 2023 due to a stricture in the descending
colon - she then had an unremarkable CT virtual colonoscopy.
04/22 PRBC 1 unit
04/22 EGD- Hiatal hernia
04/24 COLON- Exam to cecum. L sided diverticulosis. Scant blood clot in distal sigmoid colon. Restricted mobility of colon in distal sigmoid
Impression
Dark red bloody BM. EGD negative. Colon diverticulosis
CTA negative for active bleeding, but shows diverticulitis at hepatic flexure. On zosyn
Paroxysmal atrial fibrillation on eliquis
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
CAD
History of EMILY-CPAP 6 cm intolerant
History of DVT and PE 2004
History of SVT with history of ablation-PVI 12/13/2018, PVI 11/06/2019 and cardioversion 10/2020
History of V-fib arrest-in hospital-08/30/2022
Subjective
Subjective
Date of Service: April 26, 2025
No further bleeding since colonoscopy. Denies abd pain
Objective
Data Reviewed
Laboratory Data:
Laboratory Results
04/26/25 14:00
04/26/25 06:24
Laboratory Results
PT 16.9 Sec (11.4-14.6) H 04/22/25 10:46
INR 1.32 04/22/25 10:46
APTT 33.2 Sec (23.4-35.0) 04/22/25 10:46
Total Bilirubin 0.6 mg/dl (0.2-1.3) 04/24/25 06:07
AST 17 U/L (14-36) 04/24/25 06:07
ALT 12 U/L (0-35) 04/24/25 06:07
Alkaline Phosphatase 52 U/L (38-126) 04/24/25 06:07
Vital Signs and I&O:
Vital Signs
Temp Pulse Resp BP Pulse Ox
98.0 F 68 18 118/53 98
04/26/25 07:05 04/26/25 07:05 04/26/25 07:05 04/26/25 07:05 04/26/25 07:05
I&O
04/25/25 04/26/25 04/27/25
06:59 06:59 06:59
Intake Total 580 / 580 1440 / 1440
Balance 580 / 580 1440 / 1440
Physical Exam
Physical Exam
GI: Soft, Non Distended and Non Tender
[2025-04-26] MEDS: NSS (PRESERVATIVE FREE) 10 ML IV ×2 (08:46→20:18)
[2025-04-26] MEDS: PROZAC 20 MG PO (08:46)
[2025-04-26] MEDS: PROTONIX IV 40 MG IV ×2 (08:46→20:18)
[2025-04-26] MEDS: TOPROL XL 25 MG PO ×2 (08:46→20:19)
--- NOTE | 2025-04-26 10:54 | W.PN.HOSP.TC ---
Today's Communication/Plan
-
stop Zosyn
H&H in AM as now brown stool w/o blood
Eliquis start in AM as per GI
Assessment / Plan
Assessment / Plan
79yo F with PMHx of SMA branch aneurism repair, cholecystectomy, SSS s/p PPM< Afib on Eliquis, HTN, anxiety, HLD, coronary artery dissection, VT, CAD s/p [place], pancreaticoduodenal aneurism, came with multiple episodes of dark red blood per rectum
after 2days of progressive weakness at home. Had more hematochezia in the hospital so EGD was done on 04/22/25 not showing signs of bleeding , so abd CTA ordered, that did not show active blood extravasation, but showed MINIMAL acute uncomplicated
diverticulitis. Continued to have hematochezia while hoispitalized,
A/P:
#Acute blood loss anemia exacerbated by Eliquis
#acute uncomplicated diverticulitis ruled out
serial H&H, transfuse as needed, keep Hgb>8, consent signed
Hold anticoagulation, antiplatelets and NSAIDs
advance diet as tolerated
Last clonoscopy 1 year ago with
GI consult: s/p EDG on 04/22/25. Colonoscopy done on 04/25/25, showed old blood, no acute bleeding, diverticulosis w/o inflammation, scope passed all the way to descending colon. Monitoring off Eliquis and if significant bleeding re-occurs - CTA.
PPI IV BID
two large bore IV
Zosyn stopped
#small periumbilical hernia
#DJD
#Hx of Posterior decompression of L5-S1
#b/l renal cyst
no follow up advised
tylenol and PT as needed
#Malaise
multifactorial
PT/OT when HGb stable
#Celiac artery stenosis
unchanged
#Lingular atelectasis
IS
DVT ppx SCDs
Full code
I have spent at least 55min reviewing chart, test results, communication with consultants, bedside and providing direct patient care
Anticipated Discharge: Within 24 hours
Subjective/Interval History
-
Date of Service: April 26, 2025
Objective Data
-
Labs:
Laboratory Results
04/25/25 04/26/25 04/26/25
22:31 06:24 14:00
WBC 10.1
Hgb 9.1 L 9.0 L Cancelled
Hct 27.0 L 26.6 L Cancelled
Plt Count 315
Sodium 138
Potassium 4.0
Chloride 108 H
Carbon Dioxide 28
BUN 11
Creatinine 1.0
Glucose 90
Calcium 9.2
Vital Signs:
Vital Signs
Temp Pulse Resp BP Pulse Ox
98.0 F 68 18 118/53 98
04/26/25 07:05 04/26/25 08:46 04/26/25 07:05 04/26/25 08:46 04/26/25 09:25
I&O
04/25/25 04/26/25 04/27/25
06:59 06:59 06:59
Intake Total 580 / 580 1440 / 1440
Balance 580 / 580 1440 / 1440
Review of Systems
-
History Source: Patient
All other systems: Reviewed and negative
Physical Exam
-
General: No Apparent Distress
Cardiac: Regular Rhythm
GI: Soft, Nontender and Nondistended
Neuro: Awake, Alert, Oriented and AO x 3
Psych: Calm
[2025-04-26] MEDS: TYLENOL 650 MG PO (20:19)
[2025-04-26] MEDS: CRESTOR 5 MG PO (21:55)
[2025-04-26] MEDS: MELATONIN 5 MG PO (21:56)
[2025-04-26] MEDS: NORVASC 5 MG PO (21:56)
[2025-04-27 02:53] VITALS: BP 124/53
[2025-04-27 07:13] VITALS: BP 112/48
[2025-04-27] MEDS: NSS (PRESERVATIVE FREE) 10 ML IV (07:40)
[2025-04-27] MEDS: PROZAC 20 MG PO (07:40)
[2025-04-27] MEDS: TOPROL XL 25 MG PO (07:40)
[2025-04-27] MEDS: PROTONIX IV 40 MG IV (07:40)
[2025-04-27 08:20] LABS: Hematocrit 28.3 % (37.0-47.0); Hemoglobin 9.2 g/dL (12.0-16.0); Mean Corp Hgb Conc. 32.5 g/dL (33.0-37.0); Mean Corpuscular Volume 87.3 fL (81.0-99.0); Platelet Count 369 10^3/uL (130-400); Red Cell Dist. Width 14.3 % (11.5-14.5)
--- NOTE | 2025-04-27 10:15 | W.PN.HOSP.TC ---
Today's Communication/Plan
-
ELiquis as no bleeding overnight
If no further bleeding - d/c later this noon
Assessment / Plan
Assessment / Plan
79yo F with PMHx of SMA branch aneurism repair, cholecystectomy, SSS s/p PPM< Afib on Eliquis, HTN, anxiety, HLD, coronary artery dissection, VT, CAD s/p [place], pancreaticoduodenal aneurism, came with multiple episodes of dark red blood per rectum
after 2days of progressive weakness at home. Had more hematochezia in the hospital so EGD was done on 04/22/25 not showing signs of bleeding , so abd CTA ordered, that did not show active blood extravasation, but showed MINIMAL acute uncomplicated
diverticulitis. Continued to have hematochezia while hoispitalized, however it later stopped and Colonoscopy done on 04/25/25, showed old blood, no acute bleeding, diverticulosis w/o inflammation, scope passed all the way to descending colon. SInce
Hgb remained stable and no more bleeding occured - Eliquis started on 04/27/25 as per agreement with GI
A/P:
#Acute blood loss anemia exacerbated by Eliquis
#acute uncomplicated diverticulitis ruled out
serial H&H, transfuse as needed, keep Hgb>8, consent signed
Hold anticoagulation initially, restarted on 04/27/25, antiplatelets and NSAIDs
advance diet as tolerated
Last clonoscopy 1 year ago with
GI consult: s/p EDG on 04/22/25. Colonoscopy done on 04/25/25, showed old blood, no acute bleeding, diverticulosis w/o inflammation, scope passed all the way to descending colon. Monitoring off Eliquis and if significant bleeding re-occurs - CTA.
PPI IV BID
two large bore IV
Zosyn stopped
#small periumbilical hernia
#DJD
#Hx of Posterior decompression of L5-S1
#b/l renal cyst
no follow up advised
tylenol and PT as needed
#Malaise
multifactorial
PT/OT when HGb stable
#Celiac artery stenosis
unchanged
#Lingular atelectasis
IS
DVT ppx SCDs
Full code
I have spent at least 55min reviewing chart, test results, communication with consultants, bedside and providing direct patient care
Anticipated Discharge: Within 24 hours
Subjective/Interval History
-
Date of Service: April 27, 2025
Objective Data
-
Labs:
Laboratory Results
04/27/25
07:35
WBC 9.4
Hgb 9.2 L
Hct 28.3 L
Plt Count 369
Vital Signs:
Vital Signs
Temp Pulse Resp BP Pulse Ox
97.9 F 65 17 112/48 97
04/27/25 07:13 04/27/25 07:13 04/27/25 07:13 04/27/25 07:13 04/27/25 07:13
I&O
04/26/25 04/27/25 04/28/25
06:59 06:59 06:59
Intake Total 1440 / 1440 1560 / 1560
Balance 1440 / 1440 1560 / 1560
Review of Systems
-
History Source: Patient
All other systems: Reviewed and negative
Physical Exam
-
General: Well Nourished and No Apparent Distress
Neuro: Awake, Alert, Oriented and AO x 3
Psych: Calm
--- NOTE | 2025-04-27 10:20 | W.DCSUMMARY ---
Discharge Summary
Discharge Data
Date of Admission: 04/24/25
Date of Discharge: 04/27/25
-
Pending Results: No
Hospital Course
79yo F with PMHx of SMA branch aneurism repair, cholecystectomy, SSS s/p PPM< Afib on Eliquis, HTN, anxiety, HLD, coronary artery dissection, VT, CAD s/p [place], pancreaticoduodenal aneurism, came with multiple episodes of dark red blood per rectum
after 2days of progressive weakness at home. Had more hematochezia in the hospital so EGD was done on 04/22/25 not showing signs of bleeding , so abd CTA ordered, that did not show active blood extravasation, but showed MINIMAL acute uncomplicated
diverticulitis. Continued to have hematochezia while hoispitalized, however it later stopped and Colonoscopy done on 04/25/25, showed old blood, no acute bleeding, diverticulosis w/o inflammation, scope passed all the way to descending colon. Since
Hgb remained stable and no more bleeding occured - Eliquis started on 04/27/25 as per agreement with GI. No further bleeding occured. PAtint to continue self moniotirng with PCP as outpatient. Medcially stable to be d/c home. Referrral to GI for
possible pill endoscopy
I have spent at least 55min reviewing chart, test results, communication with consultants, bedside and providing direct patient care
Patient was managed for:
#Acute blood loss anemia exacerbated by Eliquis
#acute uncomplicated diverticulitis ruled out
#small periumbilical hernia
#DJD
#Hx of Posterior decompression of L5-S1
#b/l renal cyst
#Malaise
#Celiac artery stenosis
#Lingular atelectasis
Discharge Plan
-
Patient Disposition: Home (Routine Discharge)
Discharge Diagnosis/Procedures: Hematochezia
Diet: Other diet
Additional Diets: High fiber
Blood Work: H&H blood test with PCP in 1 week
Referrals:
Scooter Newman CRNP [Family Provider, Internal Medicine] - in less than 1 week
Referral Note: repeat H&H blood test
Estefania Nelson MD [Active, Gastroenterology] - in two to four weeks
Referral Note: consider pill endoscopy
Prescriptions:
Continued
Citrucel 500 mg Tablet
500 mg PO BID
fluoxetine 20 mg Capsule
20 mg PO DAILY
rosuvastatin 5 mg Tablet
5 mg PO HS
omeprazole magnesium [Prilosec OTC] 20 mg Tablet,Delayed Release (Dr/Ec)
20 mg PO BID
amlodipine 5 mg Tablet
5 mg PO HS
Eliquis 5 mg Tablet
5 mg PO BID
cholecalciferol (vitamin D3) [Vitamin D3] 50 mcg (2,000 unit) Capsule
50 mcg PO DAILY
Fiber Supplement (inulin) 2 gram Tablet,Chewable
2 tab PO DAILY
acetaminophen [Tylenol] 325 mg Tablet
650 mg PO QIDPRN PRN (Reason: mild pain)
therapeutic multivitamin Tablet
1 tab PO DAILY
aspirin 81 mg tablet,delayed release (DR/EC)
81 mg PO QPM
metoprolol succinate 25 mg tablet extended release 24 hr
25 mg PO BID
Discharge Date and Time
Print Language: HUNGARIAN
[2025-04-27] MEDS: ELIQUIS 5 MG PO (10:45)
[2025-04-27 10:52] VITALS: BP 112/67
--- NOTE | 2025-04-27 11:37 | W.PN.GI.CBS2 ---
Addendum entered and electronically signed by Kaitlin Palumbo MD 04/27/25 16:03:
I saw and examined the patient.
The FLAKER TENDER or PA's note was reviewed and I agree with the note.
Comment: 79-year-old female past medical history of A-fib on Eliquis presenting with melena and dark stool underwent upper endoscopy which was unremarkable then colonoscopy which showed left-sided diverticulosis with scant blood clot in the sigmoid.
Restricted mobility of the colon in the distal sigmoid. Suspect diverticular bleeding. This now resolved and she is on Eliquis with no issues. Also question of diverticular stricture. I did discuss with her potential risk for obstruction.
However, patient would like to avoid surgery given her cardiac history unless absolute necessary. Scope was able to eventually pass.
Original Note:
Today's Communication / Plan
-
pt feeling much better
stools now brown
tolerating low residue diet
hbg stable 9.2 with repeat at 1400 pending
Eliquis resumed this am
on discharge return to hospital for any recurrent bleeding or problems
all questions answered
Assessment / Plan
-
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 She presents w
black-colored stools which had turned red in color prior to her arrival to the ER. Hgb 12.3 which is a drop of 3 points from 15.3 a month ago. BUN 30. Borderline hypotensive. Had an incomplete colonoscopy in 2023 due to a stricture in the descending
colon - she then had an unremarkable CT virtual colonoscopy.
04/22 PRBC 1 unit
04/22 EGD- Hiatal hernia
04/24 COLON- Exam to cecum. L sided diverticulosis. Scant blood clot in distal sigmoid colon. Restricted mobility of colon in distal sigmoid
Impression
Dark red bloody BM. EGD negative. Colon diverticulosis
CTA negative for active bleeding, but shows diverticulitis at hepatic flexure. On zosyn
Paroxysmal atrial fibrillation on eliquis
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
CAD
History of EMILY-CPAP 6 cm intolerant
History of DVT and PE 2004
History of SVT with history of ablation-PVI 12/13/2018, PVI 11/06/2019 and cardioversion 10/2020
History of V-fib arrest-in hospital-08/30/2022
PLAN:
pt feeling much better
stools now brown
tolerating low residue diet
hbg stable 9.2 with repeat at 1400 pending
Eliquis resumed this am
on discharge return to hospital for any recurrent bleeding or problems
all questions answered
Subjective
Subjective
Date of Service: April 27, 2025
04/26 brown loose stools, on low residue diet
Objective
Data Reviewed
Laboratory Data:
Laboratory Results
04/27/25 07:35
04/26/25 06:24
Laboratory Results
PT 16.9 Sec (11.4-14.6) H 04/22/25 10:46
INR 1.32 04/22/25 10:46
APTT 33.2 Sec (23.4-35.0) 04/22/25 10:46
Total Bilirubin 0.6 mg/dl (0.2-1.3) 04/24/25 06:07
AST 17 U/L (14-36) 04/24/25 06:07
ALT 12 U/L (0-35) 04/24/25 06:07
Alkaline Phosphatase 52 U/L (38-126) 04/24/25 06:07
Vital Signs and I&O:
Vital Signs
Temp Pulse Resp BP Pulse Ox
98.0 F 64 17 112/67 97
04/27/25 10:52 04/27/25 10:52 04/27/25 10:52 04/27/25 10:52 04/27/25 10:52
I&O
04/26/25 04/27/25 04/28/25
06:59 06:59 06:59
Intake Total 1440 / 1440 1560 / 1560
Balance 1440 / 1440 1560 / 1560
Physical Exam
Physical Exam
HEENT: Anicteric and Moist mucous membranes
Cardiology: Normal Sinus Rhythm
Pulmonary: Clear
GI: Soft, Non Distended and Non Tender
Extremities: No Edema
[2025-04-27 14:01] LABS: Hematocrit 27.6 % (37.0-47.0); Hemoglobin 9.0 g/dL (12.0-16.0)
--- NOTE | 2025-04-27 14:33 | CM ---
Patient seen at bedside
IMM explained & signed. In chart
IA completed
Lives with in 2 story home, flight stairs to bedroom/bathroom, powder room on 1st floor
PLOF: Independent, uses cane outside the home
Denies VN/Rehab
offered VN-declined
PCP: Iraida Newman
Pharmacy: [address]
PLAN: home, no needs, declined vn
to transport
[2025-04-27 15:05] VITALS: BP 118/61
== END 2025-04-27 15:06 | disposition home or self-care (01) | DRG 378 ==
LOC: 3 WEST ACU 07:15
PROVIDERS: Nurse Practitioner Family; Specialist; ADMITTING PHYSICIAN Hospitalist; ATTENDING PHYSICIAN Internal Medicine; CONSULT PHYSICIAN Internal Medicine Gastroenterology; EMERGENCY PHYSICIAN Emergency Medicine; FAMILY PHYSICIAN Nurse Practitioner Adult Health
PROC: 30233N1 Transfusion of Nonautologous Red Blood Cells into Peripheral Vein, Percutaneous Approach (ICD-10-PCS; 2025-04-22)
PROC: 0DJ08ZZ Inspection of Upper Intestinal Tract, Via Natural or Artificial Opening Endoscopic (ICD-10-PCS; 2025-04-22)
PROC: 0DJD8ZZ Inspection of Lower Intestinal Tract, Via Natural or Artificial Opening Endoscopic (ICD-10-PCS; 2025-04-25)
DX: K92.1 Melena (principal); D62 Acute posthemorrhagic anemia; D68.32 Hemorrhagic disorder due to extrinsic circulating anticoagulants; J98.11 Atelectasis; I48.19 Other persistent atrial fibrillation; K57.30 Diverticulosis of large intestine without perforation or abscess without bleeding; K42.9 Umbilical hernia without obstruction or gangrene; M19.90 Unspecified osteoarthritis, unspecified site; N28.1 Cyst of kidney, acquired; I77.1 Stricture of artery; F41.9 Anxiety disorder, unspecified; I10 Essential (primary) hypertension; I25.10 Atherosclerotic heart disease of native coronary artery without angina pectoris; I25.2 Old myocardial infarction; Z79.01 Long term (current) use of anticoagulants; Z95.810 Presence of automatic (implantable) cardiac defibrillator; I49.5 Sick sinus syndrome; E78.00 Pure hypercholesterolemia, unspecified; K44.9 Diaphragmatic hernia without obstruction or gangrene; Z86.718 Personal history of other venous thrombosis and embolism; Z86.711 Personal history of pulmonary embolism; G47.33 Obstructive sleep apnea (adult) (pediatric); K21.9 Gastro-esophageal reflux disease without esophagitis; F32.A Depression, unspecified; Z88.2 Allergy status to sulfonamides; Z79.82 Long term (current) use of aspirin; Z86.74 Personal history of sudden cardiac arrest; Z86.0100 Personal history of colon polyps, unspecified
CPT/HCPCS: 74174; 80048; 80053; 85014; 85018; 85025; 85027; 85610; 85730; 86850; 86900; 86901; 86920; 93005; 96374; 96375; 99285; P9016; Q9967

== ENCOUNTER → 2025-04-30 10:29 | Outpatient (REF) | payer MEDICARE, SELFPAY ==
[2025-04-30 12:04] LABS: Hematocrit 33.3 % (37.0-47.0); Hemoglobin 10.4 g/dL (12.0-16.0); Mean Corp Hgb Conc. 31.2 g/dL (33.0-37.0); Mean Corpuscular Volume 92.2 fL (81.0-99.0); Nucleated Red Blood Cells % 0 %; Platelet Count 571 10^3/uL (130-400); Red Cell Dist. Width 14.2 % (11.5-14.5)
[2025-04-30 13:18] LABS: ALT (SGPT) 15 U/L (0-35); AST (SGOT) 22 U/L (14-36); Albumin 4.2 g/dl (3.5-5.0); Alkaline Phosphatase 60 U/L (38-126); Blood Urea Nitrogen 15 mg/dl (7-17); Calcium 9.6 mg/dl (8.4-10.2); Carbon Dioxide 25 mmol/L (22-30); Chloride 105 mmol/L (98-107); Glucose 99 mg/dl (70-99); Potassium 4.7 mmol/L (3.5-5.1); Sodium 139 mmol/L (135-145); Total Protein 7.0 g/dl (6.3-8.2); eGFR > 60.00
== END ==
LOC: REG 10:29
PROVIDERS: ATTENDING PHYSICIAN Internal Medicine Hematology & Oncology; FAMILY PHYSICIAN Nurse Practitioner Adult Health
DX: D47.1 Chronic myeloproliferative disease (principal); K92.2 Gastrointestinal hemorrhage, unspecified
CPT/HCPCS: 36415; 80053; 85025

== ENCOUNTER → 2025-05-07 10:23 | Outpatient (REF) | payer MEDICARE, SELFPAY ==
[2025-05-07 11:43] LABS: Hematocrit 32.4 % (37.0-47.0); Hemoglobin 10.2 g/dL (12.0-16.0); Mean Corp Hgb Conc. 31.5 g/dL (33.0-37.0); Mean Corpuscular Volume 85.5 fL (81.0-99.0); Nucleated Red Blood Cells % 0 %; Platelet Count 488 10^3/uL (130-400); Red Cell Dist. Width 14.3 % (11.5-14.5)
[2025-05-07 12:18] LABS: ALT (SGPT) 16 U/L (0-35); AST (SGOT) 21 U/L (14-36); Albumin 4.2 g/dl (3.5-5.0); Alkaline Phosphatase 75 U/L (38-126); Blood Urea Nitrogen 18 mg/dl (7-17); Calcium 9.7 mg/dl (8.4-10.2); Carbon Dioxide 23 mmol/L (22-30); Chloride 103 mmol/L (98-107); Glucose 94 mg/dl (70-99); Potassium 4.7 mmol/L (3.5-5.1); Sodium 137 mmol/L (135-145); Total Protein 7.1 g/dl (6.3-8.2); eGFR > 60.00
[2025-05-07 16:50] LABS: Iron 28 ug/dl (37-170)
[2025-05-07 17:00] LABS: Total Iron Binding Capacity 403 ug/dl (265-497)
[2025-05-07 17:47] LABS: Ferritin 9.8 ng/ml (11.1-264.0)
== END ==
LOC: REG 10:23
PROVIDERS: ATTENDING PHYSICIAN Internal Medicine Hematology & Oncology; FAMILY PHYSICIAN Nurse Practitioner Adult Health
DX: D47.1 Chronic myeloproliferative disease (principal); I48.0 Paroxysmal atrial fibrillation
CPT/HCPCS: 36415; 80053; 82728; 83540; 83550; 85025

== ENCOUNTER → 2025-05-26 10:55 | Outpatient (REF) | payer MEDICARE, SELFPAY ==
[2025-05-26 12:06] LABS: Hematocrit 39.9 % (37.0-47.0); Hemoglobin 12.3 g/dL (12.0-16.0); Mean Corp Hgb Conc. 30.8 g/dL (33.0-37.0); Mean Corpuscular Volume 85.6 fL (81.0-99.0); Nucleated Red Blood Cells % 0 %; Platelet Count 471 10^3/uL (130-400); Red Cell Dist. Width 20.1 % (11.5-14.5)
[2025-05-26 12:40] LABS: ALT (SGPT) 21 U/L (0-35); AST (SGOT) 32 U/L (14-36); Albumin 4.8 g/dl (3.5-5.0); Alkaline Phosphatase 81 U/L (38-126); Blood Urea Nitrogen 18 mg/dl (7-17); Calcium 10.0 mg/dl (8.4-10.2); Carbon Dioxide 24 mmol/L (22-30); Chloride 103 mmol/L (98-107); Glucose 107 mg/dl (70-99); Iron 139 ug/dl (37-170); Potassium 4.9 mmol/L (3.5-5.1); Sodium 139 mmol/L (135-145); Total Protein 7.9 g/dl (6.3-8.2); eGFR 56.95
[2025-05-26 12:50] LABS: Total Iron Binding Capacity 380 ug/dl (265-497)
[2025-05-26 13:11] LABS: Ferritin 345.0 ng/ml (11.1-264.0)
== END ==
LOC: REG 10:55
PROVIDERS: ATTENDING PHYSICIAN Internal Medicine Hematology & Oncology; FAMILY PHYSICIAN Nurse Practitioner Adult Health; REFERRING PHYSICIAN Internal Medicine Gastroenterology
DX: D47.1 Chronic myeloproliferative disease (principal)
CPT/HCPCS: 36415; 80053; 82728; 83540; 83550; 85025